=== PATIENT | female | born 1970 | race Caucasian/White ===

== ENCOUNTER 2017-01-20 11:59 | Emergency (ER) | payer BC ==
[~2017-01-20] VITALS: Ht 162.6 cm; Wt 68.2 kg
[~2017-01-20 11:59] MED LIST: CYMB30CA PO; OMEP20TA39 PO
[2017-01-20 12:00] VITALS: BP 165/92; PULSE 70; RESP 20; TEMP 97.7; O2SAT 95
[2017-01-20] MEDS ORDERED: CYMB60CA PO (12:23)
[2017-01-20] MEDS ORDERED: AMBI10TA PO (12:23)
[2017-01-20] MEDS ORDERED: SODIUM CHLOR 0.9% 1000 ML INJ 1,000 ML IV SCH (13:14)
[2017-01-20] MEDS ORDERED: ONDANSETRON HCL 4 MG/2 ML VIAL IVP ONE (13:15)
[2017-01-20] MEDS ORDERED: SODIUM CHLORIDE 0.9% FLUSH 5 ML FLUSH IVF PRN (13:15)
[2017-01-20 13:20] VITALS: RESP 17; O2SAT 98
[2017-01-20 13:32] LABS: AUTOMATED NEUTROPHIL # 6.7 TH/MM3 (1.8-7.7); BASOPHIL # 0.1 TH/MM3 (0-0.2); BASOPHIL % 1.4 % (0.0-2.0); EOSINOPHIL # 0.1 TH/MM3 (0-0.4); EOSINOPHIL % 1.1 % (0.0-4.0); HEMATOCRIT 46.9 % (35.0-46.0); LYMPH % 14.9 % (9.0-44.0); LYMPHOCYTE # 1.3 TH/MM3 (1.0-4.8); MEAN CELL VOLUME 89.7 FL (80.0-100.0); MEAN CORPUSCULAR HEMOGLOBIN 30.9 PG (27.0-34.0); MEAN CORPUSCULAR HGB CONC 34.4 % (32.0-36.0); MONO % 5.3 % (0.0-8.0); NEUT % 77.3 % (16.0-70.0); PLATELET COUNT 316 TH/MM3 (150-450); RED BLOOD COUNT 5.23 MIL/MM3 (4.00-5.30); WHITE BLOOD COUNT 8.6 TH/MM3 (4.0-11.0)
[2017-01-20 13:34] LABS: HEMO FLAGS AUTO DIFF
[2017-01-20 13:46] LABS: BLOOD, URINE SMALL (NEG); COMMENT (UR) CULT NOT INDICATED; CULTURE IF INDICATED CULT NOT INDICATED; GLUCOSE,URINE NEG (NEG); KETONE, URINE TRACE mg/dL (NEG); MUCUS URINE MANY /lpf (OCC); NITRITE,URINE NEG (NEG); PH, URINE 5.5 (5.0-8.5); SQUAMOUS EPITHELIAL CELL URINE 3 /hpf (0-5); URINE COLOR YELLOW (YELLW/STRAW)
[2017-01-20 13:54] LABS: ALT (GPT) 70 U/L (10-53); ANION GAP 7 MEQ/L (5-15); AST (GOT) 41 U/L (15-37); BLOOD UREA NITROGEN 15 MG/DL (7-18); CHLORIDE 102 MEQ/L (98-107); GLOMERULAR FILTRATION RATE 59 ML/MIN (>89); POTASSIUM 3.8 MEQ/L (3.5-5.1); SODIUM (NA) 136 MEQ/L (136-145)
[2017-01-20 13:57] LABS: ALKALINE PHOSPHATASE 86 U/L (45-117); TOTAL BILIRUBIN ADULT 1.5 MG/DL (0.2-1.0)
[2017-01-20 14:00] VITALS: BP 150/81; PULSE 76; RESP 17; TEMP 97.8; O2SAT 98
[2017-01-20 14:09] LABS: PLATELET ESTIMATE SMEAR NORMAL (NORMAL); PLATELET MORPHOLOGY NORMAL (NORMAL); SCAN/DIFF AUTO DIFF CONFIRMED
--- NOTE | 2017-01-20 15:30 | PD ---
HPI Chief Complaint: GI Complaint Time Seen by Provider: 12:48 Travel History International Travel<30 days: No Contact w/Intl Traveler<30days: No Traveled to known affect area: No History of Present Illness HPI Patient is a 46-year-old female comes in complaining of nausea, vomiting, diarrhea. She says this started Friday and she had multiple episodes of vomiting and diarrhea since then. Her last episode of vomiting and diarrhea were yesterday. Her was recently admitted to the hospital with C. difficile. She denies any abdominal pain. She denies seeing any blood in her vomit or her stool. She has not been on antibiotics recently. She denies any pain in her abdomen. She denies any dysuria. She denies fever or chills. PFSH Past Medical History Hx Anticoagulant Therapy: No Arthritis: Yes Anxiety: Yes Depression: Yes Cardiovascular Problems: No Cerebrovascular Accident: No Diabetes: No Diminished Hearing: No Psychiatric: Yes Respiratory: No Immunizations Current: No Tetanus Vaccination: < 5 Years Influenza Vaccination: No ?: Not Past Surgical History Appendectomy: Yes Gynecologic Surgery: Yes (OVARIAN CYST REMOVED.) Hysterectomy: Yes Other Surgery: Yes (LAPAROSCOPIES,CYSTS-OVARIES.) Social History Alcohol Use: Yes (3 times a week) Tobacco Use: Yes (1 PPD) Substance Use: No Allergies-Medications (Allergen,Severity, Reaction): Coded Allergies: Percocet (Verified Allergy, Mild, HIVES, 01/20/17) Wellbutrin (Verified Allergy, Mild, HIVES, 01/20/17) Darvocet-N 100 (Verified Allergy, Unknown, hives, 01/20/17) Reported Meds & Prescriptions Reported Meds & Active Scripts Active Reported Cymbalta DR (Duloxetine HCl) 60 Mg Capdr 60 Mg PO BID Ambien (Zolpidem Tartrate) 10 Mg Tab 10 Mg PO HS PRN Review of Systems Except as stated in HPI: all other systems reviewed are Neg General / Constitutional: No: Fever, Chills HENT: No: Headaches, Lightheadedness Cardiovascular: No: Chest Pain or Discomfort Respiratory: No: Shortness of Breath Gastrointestinal: Positive: Nausea, Vomiting, Diarrhea, No: Abdominal Pain Genitourinary: No: Dysuria Musculoskeletal: No: Edema, Pain Skin: No Rash, No Change in Pigmentation Neurologic: No: Weakness, Dizziness Physical Exam Narrative GENERAL: Awake and alert, in no acute distress. SKIN: Warm and dry. HEAD: Atraumatic. Normocephalic. EYES: Pupils equal and round. No scleral icterus. ENT: Mucous membranes pink and moist. NECK: Trachea midline. No JVD. CARDIOVASCULAR: Regular rate and rhythm. No murmur appreciated. RESPIRATORY: No accessory muscle use. Clear to auscultation. Breath sounds equal bilaterally. GASTROINTESTINAL: Abdomen soft, non-tender, nondistended. MUSCULOSKELETAL: No obvious deformities. No clubbing. No cyanosis. No edema. NEUROLOGICAL: Awake and alert. No obvious cranial nerve deficits. Motor grossly within normal limits. Normal speech. PSYCHIATRIC: Appropriate mood and affect; insight and judgment normal. Data Data Last Documented VS Vital Signs Date Time Temp Pulse Resp B/P Pulse Ox O2 Delivery O2 Flow Rate FiO2 01/20/17 15:48 97.8 78 17 130/78 99 01/20/17 14:00 Room Air Orders Complete Blood Count With Diff (01/20/17 13:14) Comprehensive Metabolic Panel (01/20/17 13:14) Urinalysis - C+S If Indicated (01/20/17 13:14) Ua Includes Microscopic (01/20/17 13:14) Iv Access Insert/Monitor (01/20/17 13:14) Ecg Monitoring (01/20/17 13:14) Oximetry (01/20/17 13:14) Ondansetron Inj (Zofran Inj) (01/20/17 13:15) Sodium Chlor 0.9% 1000 Ml Inj (Ns 1000 M (01/20/17 13:14) Sodium Chloride 0.9% Flush (Ns Flush) (01/20/17 13:15) C Diff Toxin Pcr (01/20/17 14:12) Labs Laboratory Tests Test 01/20/17 01/20/17 13:00 13:10 White Blood Count 8.6 TH/MM3 Red Blood Count 5.23 MIL/MM3 Hemoglobin 16.2 GM/DL Hematocrit 46.9 % Mean Corpuscular Volume 89.7 FL Mean Corpuscular Hemoglobin 30.9 PG Mean Corpuscular Hemoglobin 34.4 % Concent Red Cell Distribution Width 14.0 % Platelet Count 316 TH/MM3 Mean Platelet Volume 8.8 FL Neutrophils (%) (Auto) 77.3 % Lymphocytes (%) (Auto) 14.9 % Monocytes (%) (Auto) 5.3 % Eosinophils (%) (Auto) 1.1 % Basophils (%) (Auto) 1.4 % Neutrophils # (Auto) 6.7 TH/MM3 Lymphocytes # (Auto) 1.3 TH/MM3 Monocytes # (Auto) 0.5 TH/MM3 Eosinophils # (Auto) 0.1 TH/MM3 Basophils # (Auto) 0.1 TH/MM3 CBC Comment AUTO DIFF Differential Comment AUTO DIFF CONFIRMED Platelet Estimate NORMAL Platelet Morphology Comment NORMAL Red Cell Morphology Comment NORMAL Sodium Level 136 MEQ/L Potassium Level 3.8 MEQ/L Chloride Level 102 MEQ/L Carbon Dioxide Level 27.0 MEQ/L Anion Gap 7 MEQ/L Blood Urea Nitrogen 15 MG/DL Creatinine 1.00 MG/DL Estimat Glomerular Filtration 59 ML/MIN Rate Random Glucose 99 MG/DL Calcium Level 9.7 MG/DL Total Bilirubin 1.5 MG/DL Aspartate Amino Transf 41 U/L (AST/SGOT) Alanine Aminotransferase 70 U/L (ALT/SGPT) Alkaline Phosphatase 86 U/L Total Protein 8.9 GM/DL Albumin 4.4 GM/DL Urine Color YELLOW Urine Turbidity HAZY Urine pH 5.5 Urine Specific [place] 1.030 Urine Protein 100 mg/dL Urine Glucose (UA) NEG mg/dL Urine Ketones TRACE mg/dL Urine Occult Blood SMALL Urine Nitrite NEG Urine Bilirubin NEG Urine Urobilinogen 2.0 MG/DL Urine Leukocyte Esterase NEG Urine RBC 2 /hpf Urine WBC 1 /hpf Urine Squamous Epithelial 3 /hpf Cells Urine Mucus MANY /lpf Microscopic Urinalysis Comment CULT NOT INDICATED MDM Medical Decision Making Medical Screen Exam Complete: Yes Emergency Medical Condition: Yes Differential Diagnosis Gastroenteritis versus colitis versus electrolyte abnormality versus C. difficile Narrative Course Patient is a 46-year-old female comes in complaining of nausea, vomiting, diarrhea. Exam shows no acute abnormalities, there is no tenderness to her abdomen on palpation. IV established, labs sent. Labs show a slight elevation in total bilirubin to 1.5. Patient has 0 abdominal pain, no tenderness to the right upper quadrant at all. Patient given IV fluids, Zofran. She reports feeling much better after medications. She is able to drink Gatorade without vomiting. He should still has not had another bowel movement. I explained it is unlikely that she has C. difficile as she has not had a bowel movement since yesterday. I advised her to follow-up with her primary doctor to have her stool tested as an outpatient since she has not been able to go. Advised to drink plenty of fluids. Advised to eat a bland diet if she is feeling hungry. Advised to return to the ED as needed for any worsening symptoms. Diagnosis Primary Impression: Nausea, vomiting and diarrhea Patient Instructions: Acute Nausea and Vomiting (ED), General Instructions Additional Instructions: Follow up with your doctor. Drink plenty of fluids. If you are feeling hungry , eat bland foods for at least the next day. Return to the ED as needed for any worsening symptoms. Disposition: 01 DISCHARGE HOME Condition: Stable Karime Patel MD Jan 20, 2017 15:30
[2017-01-20 15:48] VITALS: BP 130/78; TEMP 97.8
== END 2017-01-20 15:50 | disposition home or self-care (01) ==
LOC: NEPA 11:59
DX: R11.2 Nausea with vomiting, unspecified (principal); R19.7 Diarrhea, unspecified; F17.210 Nicotine dependence, cigarettes, uncomplicated
CPT/HCPCS: 80053; 81001; 85025; 96361; 96374; 99284; J2405; J7030

== ENCOUNTER 2017-11-27 16:21 | Inpatient (IN) | payer BC ==
[~2017-11-27] VITALS: Ht 160 cm; Wt 63.1 kg
[~2017-11-27 16:21] MED LIST changes: +AMBI10TA PO; -CYMB30CA PO; +CYMB60CA PO; -OMEP20TA39 PO
[2017-11-27 16:28] VITALS: BP 112/71; PULSE 91; RESP 14; TEMP 97.9; O2SAT 97
[2017-11-27 17:02] LABS: AUTOMATED NEUTROPHIL # 11.9 TH/MM3 (1.8-7.7); BASOPHIL # 0.1 TH/MM3 (0-0.2); BASOPHIL % 0.7 % (0.0-2.0); EOSINOPHIL # 0.1 TH/MM3 (0-0.4); EOSINOPHIL % 0.4 % (0.0-4.0); HEMATOCRIT 44.6 % (35.0-46.0); HEMOGLOBIN 15.9 GM/DL (11.6-15.3); LYMPH % 16.6 % (9.0-44.0); LYMPHOCYTE # 2.6 TH/MM3 (1.0-4.8); MEAN CELL VOLUME 91.2 FL (80.0-100.0); MEAN CORPUSCULAR HEMOGLOBIN 32.4 PG (27.0-34.0); MEAN CORPUSCULAR HGB CONC 35.6 % (32.0-36.0); MEAN PLATELET VOLUME 8.4 FL (7.0-11.0); MONO % 6.9 % (0.0-8.0); MONOCYTE # 1.1 TH/MM3 (0-0.9); NEUT % 75.4 % (16.0-70.0); PLATELET COUNT 317 TH/MM3 (150-450); RED BLOOD COUNT 4.89 MIL/MM3 (4.00-5.30); RED CELL DISTRIBUTION WIDTH 14.3 % (11.6-17.2); WHITE BLOOD COUNT 15.8 TH/MM3 (4.0-11.0)
[2017-11-27 17:13] LABS: BACTERIA, URINE RARE /hpf; BILIRUBIN, URINE NEG (NEG); BLOOD, URINE LARGE (NEG); GLUCOSE,URINE NEG (NEG); KETONE, URINE NEG (NEG); MUCUS URINE FEW /lpf (OCC); NITRITE,URINE NEG (NEG); PH, URINE 5.5 (5.0-8.5); SQUAMOUS EPITHELIAL CELL URINE <1 /hpf (0-5); URINE COLOR YELLOW (YELLW/STRAW); URINE LEUKOCYTE ESTERASE TRACE (NEG)
[2017-11-27 17:39] LABS: ALBUMIN 4.4 GM/DL (3.4-5.0); ALT (GPT) 44 U/L (10-53); AST (GOT) 28 U/L (15-37); BICARBONATE 27.1 MEQ/L (21.0-32.0); BLOOD UREA NITROGEN 11 MG/DL (7-18); CALCIUM 9.7 MG/DL (8.5-10.1); CHLORIDE 102 MEQ/L (98-107); CREATININE 0.87 MG/DL (0.50-1.00); GLOMERULAR FILTRATION RATE 69 ML/MIN (>89); GLUCOSE,RANDOM 96 MG/DL (74-106); LIPASE 126 U/L (73-393); SODIUM (NA) 138 MEQ/L (136-145)
[2017-11-27 17:42] LABS: ALKALINE PHOSPHATASE 100 U/L (45-117); TOTAL BILIRUBIN ADULT 1.1 MG/DL (0.2-1.0); TOTAL PROTEIN 8.9 GM/DL (6.4-8.2)
[2017-11-27] MEDS ORDERED: HYDR1SOL6 (17:48)
[2017-11-27] MEDS ORDERED: GABA300C5 PO (17:48)
--- NOTE | 2017-11-27 17:54 | PD ---
HPI Chief Complaint: Abdominal Pain Time Seen by Provider: 17:51 Travel History International Travel<30 days: No Contact w/Intl Traveler<30days: No Traveled to known affect area: No History of Present Illness HPI 47-year-old female presents to emergency Department with complaint of worsening of bladder pressure today. She has had bladder pressure on and off for the past week. Had hematuria last week for 1 day. Denies dysuria. Denies vaginal discharge, bleeding, odor. Reports vomiting this morning. Reports diarrhea. Has had some sips of orange soda and without continued vomiting. Denies nausea at this time. Denies history of kidney stones. Denies fevers. Took a Lortab earlier with no relief of symptoms. Rates pain 10/10. Describes it as a pressure. History of hysterectomy. History of arthritis. Allergies to acetaminophen, bupropion, oxycodone, propoxyphene. Dr. Watson is primary care provider. Has no other medical complaints. No other modifying factors or associated signs and symptoms. PFSH Past Medical History Hx Anticoagulant Therapy: No Arthritis: Yes Anxiety: Yes Depression: Yes Cardiovascular Problems: No Cerebrovascular Accident: No Diabetes: No Diminished Hearing: No Psychiatric: Yes Respiratory: No Immunizations Current: No Tetanus Vaccination: < 5 Years ?: Not Past Surgical History Appendectomy: Yes Gynecologic Surgery: Yes (OVARIAN CYST REMOVED.) Hysterectomy: Yes Other Surgery: Yes (LAPAROSCOPIES,CYSTS-OVARIES.) Social History Alcohol Use: Yes (3 times a week) Tobacco Use: Yes (1 PPD) Substance Use: No Allergies-Medications (Allergen,Severity, Reaction): Coded Allergies: acetaminophen (Verified Allergy, Mild, HIVES, 11/27/17) pt states she can take tylenol without any issues; pt states she has an allergy to Percocet (oxycodone) bupropion (Verified Allergy, Mild, HIVES, 11/27/17) oxycodone (Verified Allergy, Mild, HIVES, 11/27/17) pt states she is allergic to percocet; pt is able to take tylenol without any issues. propoxyphene (Verified Allergy, Unknown, hives, 11/27/17) Reported Meds & Prescriptions Reported Meds & Active Scripts Active Reported Hydrocodon-Acetamin 7.5-325/15 (Hydrocodone/Acetaminophen) 7.5 Mg-325 Mg/15 Ml ( 15 Ml) Solution Gabapentin 300 Mg Cap 300 Mg PO BID Ambien (Zolpidem Tartrate) 10 Mg Tab 10 Mg PO HS PRN Review of Systems Except as stated in HPI: all other systems reviewed are Neg Physical Exam Narrative GENERAL: Well-nourished, well-developed female patient, in no acute distress; afebrile SKIN: Warm and dry. HEAD: Atraumatic. Normocephalic. EYES: Pupils equal and round. No scleral icterus. No injection or drainage. ENT: Mucosa pink and moist. Airway patent. NECK: Trachea midline. CARDIOVASCULAR: Regular rate and rhythm. No murmur appreciated. RESPIRATORY: No accessory muscle use. Clear to auscultation. Breath sounds equal bilaterally. GASTROINTESTINAL: Abdomen soft, tenderness on palpation to right lower quadrant , nondistended; tenderness on palpation of the bladder; nondistended bladder Hepatic and splenic margins not palpable. Bowel sounds are active 4 quadrants. Nonrigid. No guarding. BACK: Right-sided CVA tenderness. MUSCULOSKELETAL: No obvious deformities. No clubbing. No cyanosis. No edema. NEUROLOGICAL: Awake and alert. Oriented 3. No obvious cranial nerve deficits. Motor grossly within normal limits. Normal speech. PSYCHIATRIC: Appropriate mood and affect; insight and judgment normal. Data Data Last Documented VS Vital Signs Date Time Temp Pulse Resp B/P (MAP) Pulse Ox O2 Delivery O2 Flow Rate FiO2 11/27/17 19:45 98.2 11/27/17 16:28 91 14 97 Orders Orders Complete Blood Count With Diff (11/27/17 16:37) Comprehensive Metabolic Panel (11/27/17 16:37) Lipase (11/27/17 16:37) Urinalysis - C+S If Indicated (11/27/17 16:37) Iv Access Insert/Monitor (11/27/17 18:02) Sodium Chlor 0.9% 1000 Ml Inj (Ns 1000 M (11/27/17 18:02) Sodium Chloride 0.9% Flush (Ns Flush) (11/27/17 18:15) Ketorolac Inj (Toradol Inj) (11/27/17 18:15) Ct Abd/Pel W/O Iv Contrast (11/27/17 18:02) Ceftriaxone Inj (Rocephin Inj) (11/27/17 19:45) Metronidazole 500 Mg Inj (Flagyl 500 Mg (11/27/17 19:45) Fentanyl Inj (Fentanyl Inj) (11/27/17 19:45) Ondansetron Inj (Zofran Inj) (11/27/17 19:45) Admit Order (Ed Use Only) (11/27/17 ) Vital Signs (Adult) Q4H (11/27/17 19:50) Activity Oob With Assistance (11/27/17 19:50) Notify Dr: Other (11/27/17 19:50) Lactic Acid (11/27/17 19:50) Labs Laboratory Tests Test 11/27/17 16:47 11/27/17 16:51 Urine Color YELLOW Urine Turbidity CLEAR Urine pH 5.5 Urine Specific [place] 1.022 Urine Protein TRACE mg/dL Urine Glucose (UA) NEG mg/dL Urine Ketones NEG mg/dL Urine Occult Blood LARGE Urine Nitrite NEG Urine Bilirubin NEG Urine Urobilinogen LESS THAN 2.0 MG/DL Urine Leukocyte Esterase TRACE Urine RBC /hpf Urine WBC 6 /hpf Urine Squamous Epithelial Cells <1 /hpf Urine Bacteria RARE /hpf Urine Mucus FEW /lpf Microscopic Urinalysis Comment CULT NOT INDICATED White Blood Count 15.8 TH/MM3 Red Blood Count 4.89 MIL/MM3 Hemoglobin 15.9 GM/DL Hematocrit 44.6 % Mean Corpuscular Volume 91.2 FL Mean Corpuscular Hemoglobin 32.4 PG Mean Corpuscular Hemoglobin Concent 35.6 % Red Cell Distribution Width 14.3 % Platelet Count 317 TH/MM3 Mean Platelet Volume 8.4 FL Neutrophils (%) (Auto) 75.4 % Lymphocytes (%) (Auto) 16.6 % Monocytes (%) (Auto) 6.9 % Eosinophils (%) (Auto) 0.4 % Basophils (%) (Auto) 0.7 % Neutrophils # (Auto) 11.9 TH/MM3 Lymphocytes # (Auto) 2.6 TH/MM3 Monocytes # (Auto) 1.1 TH/MM3 Eosinophils # (Auto) 0.1 TH/MM3 Basophils # (Auto) 0.1 TH/MM3 CBC Comment DIFF FINAL Differential Comment Blood Urea Nitrogen 11 MG/DL Creatinine 0.87 MG/DL Random Glucose 96 MG/DL Total Protein 8.9 GM/DL Albumin 4.4 GM/DL Calcium Level 9.7 MG/DL Alkaline Phosphatase 100 U/L Aspartate Amino Transf (AST/SGOT) 28 U/L Alanine Aminotransferase (ALT/SGPT) 44 U/L Total Bilirubin 1.1 MG/DL Sodium Level 138 MEQ/L Potassium Level 3.9 MEQ/L Chloride Level 102 MEQ/L Carbon Dioxide Level 27.1 MEQ/L Anion Gap 9 MEQ/L Estimat Glomerular Filtration Rate 69 ML/MIN Lipase 126 U/L MDM Medical Decision Making Medical Screen Exam Complete: Yes Emergency Medical Condition: Yes Medical Record Reviewed: Yes Differential Diagnosis nephrolithiasis, UTI, pyelonephritis Narrative Course 47-year-old female physical exam consistent with right lower quadrant abdominal pain and pain over the bladder. No bladder distention. Urinalysis, CBC, BMP ordered in triage. 1754: WBC 15.8, otherwise CBC unremarkable. BMP unremarkable lipase unremarkable. Urinalysis with innumerable red blood cells and without signs of infection. 1900: Report given to Polo Olea PA-C at change of shift. See his note for final patient disposition. Carisa Soto Nov 27, 2017 17:54
[2017-11-27] MEDS ORDERED: SODIUM CHLOR 0.9% 1000 ML INJ 1,000 ML IV SCH (18:02)
[2017-11-27] MEDS ORDERED: KETOROLAC TROMETHAMINE 30 MG/ML (IVP) VIAL IVP ONE (18:15)
[2017-11-27] MEDS ORDERED: SODIUM CHLORIDE 0.9% FLUSH 10 ML FLUSH IV FLUSH PRN ×2 (18:15→20:00)
--- NOTE | 2017-11-27 19:25 | RADRPT ---
EXAM DATE/TIME: 11/27/2017 18:58 [facility] COMPARISON: No previous studies available for comparison. INDICATIONS : Bilateral lower abdominal pain with hematuria. ORAL CONTRAST: No oral contrast ingested. RADIATION DOSE: 8.50 CTDIvol (mGy) MEDICAL HISTORY : Ovarian cysts. SURGICAL HISTORY : Appendectomy. Hysterectomy. ENCOUNTER: Initial ACUITY: 1 week PAIN SCALE: 8/10 LOCATION: Bilateral lower quadrant TECHNIQUE: Volumetric scanning of the abdomen and pelvis was performed. Using automated exposure control and ad justment of the mA and/or kV according to patient size, radiation dose was kept as low as reasonably achievable to obtain optimal diagnostic quality images. DICOM format image data is available electro nically for review and comparison. FINDINGS: LOWER LUNGS: The visualized lower lungs are clear. LIVER: Visualized portions are unremarkable. Gallbladder slightly distended. SPLEEN: Visualized portions unremarkable. PANCREAS: Scattered tiny calcifications. No mass. No pancreatic ductal dilatation. KIDNEYS: Normal in size and shape. There is no mass, stone, or hydronephrosis. ADRENAL GLANDS: Within normal limits. VASCULAR: There is no aortic aneurysm. BOWEL/MESENTERY: Distal colonic diverticula. Inflammatory changes adjacent to the distal sigmoid colon and proximal re ctum, likely indicative of active diverticulitis. No evidence of extraluminal gas or fluid. No eviden ce of bowel obstruction. ABDOMINAL WALL: Within normal limits. RETROPERITONEUM: There is no lymphadenopathy. BLADDER: No wall thickening or mass. REPRODUCTIVE: Uterus surgically absent. No evidence of pelvic mass or free fluid. INGUINAL: There is no lymphadenopathy or hernia. MUSCULOSKELETAL: Within normal limits for patient age. CONCLUSION: Sigmoid diverticulitis. Vipin Turner MD on November 27, 2017 at 19:21 Board Certified Radiologist. This report was verified electronically.
[2017-11-27 19:45] VITALS: TEMP 98.2
[2017-11-27] MEDS ORDERED: metroNIDAZOLE 500 MG INJ 100 ML IV ONE (19:45)
[2017-11-27] MEDS ORDERED: ONDANSETRON HCL 4 MG/2 ML VIAL IV PUSH ONE (19:45)
[2017-11-27] MEDS ORDERED: cefTRIAXone INJ 1,000 MG in SODIUM CHLORIDE 0.9% INJ 100 ML IV ONE (19:45)
--- NOTE | 2017-11-27 19:56 | PD ---
Physical Exam Date Seen by Provider: Nov 27, 2017 Time Seen by Provider: 19:52 Narrative GENERAL: This is a well-nourished, well-developed patient, in no apparent distress. SKIN: No rashes, ecchymoses or lesions. Warm and dry. HEAD: Atraumatic. Normocephalic. EYES: PERRL, EOMI, no discharge or injection. No scleral icterus. EARS: Clear NOSE: Nasal turbinates appear normal. THROAT: Mucosa pink and somewhat dry. Airway patent. NECK: Trachea midline. supple, moves head freely. LUNGS: Clear to auscultation. CV: Regular in rhythm. ABDOMEN: Soft nontender, diffuse lower abdominal tenderness worse in the suprapubic and right lower quadrant with mild guarding. No rebound. EXT: No clubbing cyanosis or edema. Data Data Last Documented VS Vital Signs Date Time Temp Pulse Resp B/P (MAP) Pulse Ox O2 Delivery O2 Flow Rate FiO2 11/27/17 19:45 98.2 11/27/17 16:28 91 14 97 Orders Orders Complete Blood Count With Diff (11/27/17 16:37) Comprehensive Metabolic Panel (11/27/17 16:37) Lipase (11/27/17 16:37) Urinalysis - C+S If Indicated (11/27/17 16:37) Iv Access Insert/Monitor (11/27/17 18:02) Sodium Chlor 0.9% 1000 Ml Inj (Ns 1000 M (11/27/17 18:02) Sodium Chloride 0.9% Flush (Ns Flush) (11/27/17 18:15) Ketorolac Inj (Toradol Inj) (11/27/17 18:15) Ct Abd/Pel W/O Iv Contrast (11/27/17 18:02) Ceftriaxone Inj (Rocephin Inj) (11/27/17 19:45) Metronidazole 500 Mg Inj (Flagyl 500 Mg (11/27/17 19:45) Fentanyl Inj (Fentanyl Inj) (11/27/17 19:45) Ondansetron Inj (Zofran Inj) (11/27/17 19:45) Admit Order (Ed Use Only) (11/27/17 ) Vital Signs (Adult) Q4H (11/27/17 19:50) Diet Heart Healthy (11/28/17 Breakfast) Activity Oob With Assistance (11/27/17 19:50) Notify Dr: Other (11/27/17 19:50) Lactic Acid (11/27/17 19:50) Labs Laboratory Tests Test 11/27/17 16:47 11/27/17 16:51 Urine Color YELLOW Urine Turbidity CLEAR Urine pH 5.5 Urine Specific [place] 1.022 Urine Protein TRACE mg/dL Urine Glucose (UA) NEG mg/dL Urine Ketones NEG mg/dL Urine Occult Blood LARGE Urine Nitrite NEG Urine Bilirubin NEG Urine Urobilinogen LESS THAN 2.0 MG/DL Urine Leukocyte Esterase TRACE Urine RBC /hpf Urine WBC 6 /hpf Urine Squamous Epithelial Cells <1 /hpf Urine Bacteria RARE /hpf Urine Mucus FEW /lpf Microscopic Urinalysis Comment CULT NOT INDICATED White Blood Count 15.8 TH/MM3 Red Blood Count 4.89 MIL/MM3 Hemoglobin 15.9 GM/DL Hematocrit 44.6 % Mean Corpuscular Volume 91.2 FL Mean Corpuscular Hemoglobin 32.4 PG Mean Corpuscular Hemoglobin Concent 35.6 % Red Cell Distribution Width 14.3 % Platelet Count 317 TH/MM3 Mean Platelet Volume 8.4 FL Neutrophils (%) (Auto) 75.4 % Lymphocytes (%) (Auto) 16.6 % Monocytes (%) (Auto) 6.9 % Eosinophils (%) (Auto) 0.4 % Basophils (%) (Auto) 0.7 % Neutrophils # (Auto) 11.9 TH/MM3 Lymphocytes # (Auto) 2.6 TH/MM3 Monocytes # (Auto) 1.1 TH/MM3 Eosinophils # (Auto) 0.1 TH/MM3 Basophils # (Auto) 0.1 TH/MM3 CBC Comment DIFF FINAL Differential Comment Blood Urea Nitrogen 11 MG/DL Creatinine 0.87 MG/DL Random Glucose 96 MG/DL Total Protein 8.9 GM/DL Albumin 4.4 GM/DL Calcium Level 9.7 MG/DL Alkaline Phosphatase 100 U/L Aspartate Amino Transf (AST/SGOT) 28 U/L Alanine Aminotransferase (ALT/SGPT) 44 U/L Total Bilirubin 1.1 MG/DL Sodium Level 138 MEQ/L Potassium Level 3.9 MEQ/L Chloride Level 102 MEQ/L Carbon Dioxide Level 27.1 MEQ/L Anion Gap 9 MEQ/L Estimat Glomerular Filtration Rate 69 ML/MIN Lipase 126 U/L [facility] Medical Record Reviewed: Yes Supervised Visit with HEATHER: Yes Interpretation(s) CBC & BMP Diagram 11/27/17 16:51 Total Protein 8.9 H, Albumin 4.4, Calcium Level 9.7, Alkaline Phosphatase 100, Aspartate Amino Transf (AST/SGOT) 28, Alanine Aminotransferase (ALT/SGPT) 44, Total Bilirubin 1.1 H Last 24 hours Impressions Abdomen/Pelvis CT 11/27/17 1802 Signed Impressions: Service Date/Time: October 18:58 - CONCLUSION: Sigmoid diverticulitis. Vipin Turner MD Differential Diagnosis MDM: High Differential diagnoses: Nephrolithiasis, diverticulitis, hepatitis, colitis, ischemic bowel, bowel instruction Narrative Course IV access is obtained. Patient's liver and liter bolus normal saline. Patient' s also given 1 g Rocephin IV and Flagyl 500 mg IV. Fentanyl 25 g IV. I reviewed the patient's medical record from the daytime provider. Patient has lower abdominal pain with subjective fever and chills at home, nausea vomiting, and worsening abdominal pain. I believe this patient necessitates IV antibiotics and admission. I discussed the case with Dr. Winn who is agreed to admit this patient. She feels that this patient meets full admission criteria. We will also obtain a lactic acid level to monitor for sepsis. Sepsis Criteria SIRS Criteria (2 or more): Heart rate over 90, WBC > 89935, < 4000 or > 10% bands Sepsis Criteria (SIRS+source): Infect source susp/known Criteria Outcome: Meets SIRS criteria Diagnosis Primary Impression: acute sigmoid diverticulitis Admitting Information Admitting Physician Requests: Admit Polo Olea Nov 27, 2017 19:56
--- NOTE | 2017-11-27 19:59 | HHI.HP ---
HPI Service [facility] Primary Care Physician Unknown Admission Diagnosis acute sigmoid diverticulitis Diagnoses: (1) Diverticulitis Diagnosis: Principal (2) Hematuria Diagnosis: Principal (3) Dehydration Diagnosis: Principal (4) Alcohol abuse Diagnosis: Principal (5) Tobacco abuse Diagnosis: Principal Travel History International Travel<30 Days: No Contact w/Intl Traveler <30 Da: No Traveled to Known Affected Are: No History of Present Illness This is a 47-year-old female with a PMH of Anxiety and Depression who presented to the ER w/ complaints of abdominal pain, hematuria and dysuria for approx 1wk. Symptoms intermittent. Pain constant, severe 10/10. No alleviating/ exacerbating factors. Denies associated fever, chills, nausea, vomiting or diarrhea. Took pain pill at home w/ no relief. No h/o similar symptoms. On arrival, BP 112/71, HR 91, O2 sat 97% on RA, Afebrile. WBC 15.8. GFR 69. Lactic Acid normal. UA positive for hematuria. CT Abd/Pelvis positive for sigmoid diverticulitis. S/p Rocephin/Flagyl in ER. Review of Systems Except as stated in HPI: all other systems reviewed are Neg ROS: 14 point review of systems otherwise negative. Past Family Social History Past Medical History PMH: Anxiety and Depression Past Surgical History PAST SURGICAL HISTORY: Ovarian Cystectomy, Hysterectomy, Appendectomy Allergies: Coded Allergies: acetaminophen (Verified Allergy, Mild, HIVES, 11/27/17) pt states she can take tylenol without any issues; pt states she has an allergy to Percocet (oxycodone) bupropion (Verified Allergy, Mild, HIVES, 11/27/17) oxycodone (Verified Allergy, Mild, HIVES, 11/27/17) pt states she is allergic to percocet; pt is able to take tylenol without any issues. propoxyphene (Verified Allergy, Unknown, hives, 11/27/17) Family History PAST FAMILY HISTORY: Reviewed. No h/o DM or CAD Social History PAST SOCIAL HISTORY: Positive for alcohol. Smokes 1ppd. Negative for drugs. Physical Exam Vital Signs Vital Signs Date Time Temp Pulse Resp B/P (MAP) Pulse Ox O2 Delivery O2 Flow Rate FiO2 11/27/17 19:45 98.2 11/27/17 16:28 97.9 91 14 112/71 (85) 97 Physical Exam PE: GENERAL: Middle-aged female in no acute distress. HEENT: PERRLA, EOMI. No scleral icterus or conjunctival pallor. No lid lag or facial droop. CARDIOVASCULAR: Regular rate and rhythm. No obvious murmurs to auscultation. No chest tenderness to palpation. RESPIRATORY: No obvious rhonchi or wheezing. Clear to auscultation. Breath sounds equal bilaterally. GASTROINTESTINAL: Abdomen soft, mild generalized tenderness to palpation, nondistended. BS normal. MUSCULOSKELETAL: Extremities without clubbing, cyanosis, or edema. No obvious deformities. NEUROLOGICAL: Awake, alert and oriented x4. No focal neurologic deficits. Moving both upper and lower extremities spontaneously. Laboratory Laboratory Tests Test 11/27/17 16:47 11/27/17 16:51 Urine Color YELLOW Urine Turbidity CLEAR Urine pH 5.5 Urine Specific [place] 1.022 Urine Protein TRACE Urine Glucose (UA) NEG Urine Ketones NEG Urine Occult Blood LARGE Urine Nitrite NEG Urine Bilirubin NEG Urine Urobilinogen LESS THAN 2.0 Urine Leukocyte Esterase TRACE Urine RBC Urine WBC 6 Urine Squamous Epithelial Cells <1 Urine Bacteria RARE Urine Mucus FEW Microscopic Urinalysis Comment CULT NOT INDICATED White Blood Count 15.8 Red Blood Count 4.89 Hemoglobin 15.9 Hematocrit 44.6 Mean Corpuscular Volume 91.2 Mean Corpuscular Hemoglobin 32.4 Mean Corpuscular Hemoglobin Concent 35.6 Red Cell Distribution Width 14.3 Platelet Count 317 Mean Platelet Volume 8.4 Neutrophils (%) (Auto) 75.4 Lymphocytes (%) (Auto) 16.6 Monocytes (%) (Auto) 6.9 Eosinophils (%) (Auto) 0.4 Basophils (%) (Auto) 0.7 Neutrophils # (Auto) 11.9 Lymphocytes # (Auto) 2.6 Monocytes # (Auto) 1.1 Eosinophils # (Auto) 0.1 Basophils # (Auto) 0.1 CBC Comment DIFF FINAL Differential Comment Blood Urea Nitrogen 11 Creatinine 0.87 Random Glucose 96 Total Protein 8.9 Albumin 4.4 Calcium Level 9.7 Alkaline Phosphatase 100 Aspartate Amino Transf (AST/SGOT) 28 Alanine Aminotransferase (ALT/SGPT) 44 Total Bilirubin 1.1 Sodium Level 138 Potassium Level 3.9 Chloride Level 102 Carbon Dioxide Level 27.1 Anion Gap 9 Estimat Glomerular Filtration Rate 69 Lipase 126 Result Diagram: 11/27/17165011/27/171650 [place] VTE Risk Assessment Caprini VTE Risk Assessment: No/Low Risk (score <= 1) Caprini Risk Assessment Model Point Value = 1 Point Value = 2 Point Value = 3 Point Value = 5 Age 41-60 Minor surgery BMI > 25 kg/m2 Swollen legs Varicose veins or History of unexplained or recurrent spontaneous Oral contraceptives or hormone replacement Sepsis (< 1 month) Serious lung disease, including pneumonia (< 1 month) Abnormal pulmonary function Acute myocardial infarction Congestive heart failure (< 1 month) History of inflammatory bowel disease Medical patient at bed rest Age 61-74 Arthroscopic surgery Major open surgery (> 45 min) Laparoscopic surgery (> 45 min) Malignancy Confined to bed (> 72 hours) Immobilizing plaster cast Central venous access Age >= 75 History of VTE Family history of VTE Factor V Leiden Prothrombin [id number] Lupus anticoagulant Anticardiolipin antibodies Elevated serum homocysteine Heparin-induced thrombocytopenia Other congenital or acquired thrombophilia Stroke (< 1 month) Elective arthroplasty Hip, pelvis, or leg fracture Acute spinal cord injury (< 1 month) Prophylaxis Regimen Total Risk Factor Score Risk Level Prophylaxis Regimen 0-1 Low Early ambulation 2 Moderate Order ONE of the following: *Sequential Compression Device (SCD) *Heparin 5000 units SQ BID 3-4 Higher Order ONE of the following medications: *Heparin 5000 units SQ TID *Enoxaparin/Lovenox 40 mg SQ daily (WT < 150 kg, CrCl > 30 mL/min) *Enoxaparin/Lovenox 30 mg SQ daily (WT < 150 kg, CrCl > 10-29 mL/min) *Enoxaparin/Lovenox 30 mg SQ BID (WT < 150 kg, CrCl > 30 mL/min) AND/OR *Sequential Compression Device (SCD) 5 or more Highest Order ONE of the following medications: *Heparin 5000 units SQ TID (Preferred with Epidurals) *Enoxaparin/Lovenox 40 mg SQ daily (WT < 150 kg, CrCl > 30 mL/min) *Enoxaparin/Lovenox 30 mg SQ daily (WT < 150 kg, CrCl > 10-29 mL/min) *Enoxaparin/Lovenox 30 mg SQ BID (WT < 150 kg, CrCl > 30 mL/min) AND *Sequential Compression Device (SCD) Assessment and Plan Problem List: (1) Diverticulitis ICD Code: K57.92 - Diverticulitis of intestine, part unspecified, without perforation or abscess without bleeding (2) Hematuria ICD Code: R31.9 - Hematuria, unspecified (3) Dehydration ICD Code: E86.0 - Dehydration (4) Alcohol abuse ICD Code: F10.10 - Alcohol abuse, uncomplicated (5) Tobacco abuse ICD Code: Z72.0 - Tobacco use Assessment and Plan A/P: 1. Diverticulitis: abdominal pain x1 wk, CT Abd/Pelvis w/ sigmoid diverticulitis, images reviewed by me. +WBC 15. S/p Rocephin/Flagyl in ER, will continue w/ Zosyn IV. Analgesics/antiemetics as needed. IVF for hydration. 2. Hematuria: U/a positive for hematuria, no evidence of UTI. Recommended follow up U/a as outpatient to eval for resolution of hematuria. Hgb stable, monitor Hgb/Hct. 3. Dehydration: GFR 69, BUN/Creatinine normal, decreased PO intake in light of symptoms. IVF for hydration, repeat labs in am. 4. Alcohol Abuse: CIWA, Seizure Precautions, MVT/Thiamine/Folate replacement. 5. Tobacco Abuse: Pt counselled. NicoDerm prn if needed. 6. DVT Prophylaxis: SCD/Teds. 7. Social work for d/c planning as needed. 8. Previous labs/records reviewed, case discussed at length w/ ER physician. Physician Certification 2 Midnight Certification Type: Admission for Inpatient Services Order for Inpatient Services The services are ordered in accordance with Medicare regulations or non- Medicare payer requirements, as applicable. In the case of services not specified as inpatient-only, they are appropriately provided as inpatient services in accordance with the 2-midnight benchmark. Estimated LOS (days): 2 days is the estimated time the patient will need to remain in the hospital, assuming treatment plan goals are met and no additional complications. Post-Hospital Plan: Not yet determined Lovely Winn MD Nov 27, 2017 19:59
[2017-11-27] MEDS ORDERED: MAGNESIUM HYDROXIDE SUSP 30 ML CUP PO PRN (20:00)
[2017-11-27] MEDS ORDERED: LACTULOSE SYRUP 20 GM/30 ML CUP PO PRN (20:00)
[2017-11-27] MEDS ORDERED: BISACODYL 10 MG SUPP RECTAL PRN (20:00)
[2017-11-27] MEDS ORDERED: SENNOSIDES 8.6 MG TAB PO PRN (20:00)
[2017-11-27] MEDS ORDERED: MORPHINE SULFATE 2 MG/ML INJ IV PUSH PRN (20:00)
[2017-11-27 20:05] VITALS: BP 124/66; PULSE 69; RESP 18; O2SAT 96
[2017-11-27 20:35] VITALS: BP 130/70
[2017-11-27 20:45] VITALS: BP 126/67; PULSE 68; RESP 18; TEMP 98.1; O2SAT 94
[2017-11-27] MEDS: SODIUM CHLORIDE 0.9% FLUSH 10 ML FLUSH IV FLUSH SCH (21:00)
[2017-11-27] MEDS: DOCUSATE SODIUM 50 MG/SENNA 8.6 MG TAB PO SCH (21:00)
[2017-11-27] MEDS: SODIUM CHLOR 0.9% 1000 ML INJ 1,000 ML IV SCH (21:54)
[2017-11-27] MEDS: GABAPENTIN 300 MG CAP PO SCH (21:55)
[2017-11-27] MEDS: ZOLPIDEM TARTRATE 10 MG TAB PO PRN (21:55)
[2017-11-27] MEDS ORDERED: LORazepam 2 MG TAB PO PRN (22:15)
[2017-11-27] MEDS ORDERED: FLUMAZENIL 0.5 MG/5 ML VIAL IV PUSH PRN (22:15)
[2017-11-27] MEDS ORDERED: LORazepam 2 MG/ML VIAL IV PUSH PRN ×4 (22:15)
[2017-11-27] MEDS ORDERED: LORazepam 1 MG TAB PO PRN (22:15)
[2017-11-27 23:17] VITALS: BP 126/96; PULSE 84; RESP 18; TEMP 98.4; O2SAT 98
[2017-11-28] MEDS: PIPERACIL-TAZO 4.5 GM PREMIX 100 ML IV SCH ×4 (00:17→19:00)
[2017-11-28] MEDS: MORPHINE SULFATE 2 MG/ML INJ IV PUSH PRN ×8 (03:06→21:54)
[2017-11-28] MEDS: SODIUM CHLORIDE 0.9% FLUSH 10 ML FLUSH IV FLUSH SCH ×2 (03:07→20:44)
[2017-11-28 03:37] VITALS: BP 123/71; PULSE 73; RESP 18; TEMP 98.7; O2SAT 96
[2017-11-28 07:25] LABS: AUTOMATED NEUTROPHIL # 7.4 TH/MM3 (1.8-7.7); BASOPHIL # 0.1 TH/MM3 (0-0.2); BASOPHIL % 0.6 % (0.0-2.0); EOSINOPHIL # 0.2 TH/MM3 (0-0.4); EOSINOPHIL % 1.5 % (0.0-4.0); HEMATOCRIT 37.7 % (35.0-46.0); HEMOGLOBIN 12.8 GM/DL (11.6-15.3); LYMPH % 19.9 % (9.0-44.0); LYMPHOCYTE # 2.1 TH/MM3 (1.0-4.8); MEAN CELL VOLUME 91.8 FL (80.0-100.0); MEAN CORPUSCULAR HEMOGLOBIN 31.2 PG (27.0-34.0); MEAN PLATELET VOLUME 8.8 FL (7.0-11.0); MONOCYTE # 0.8 TH/MM3 (0-0.9); PLATELET COUNT 239 TH/MM3 (150-450); RED CELL DISTRIBUTION WIDTH 14.5 % (11.6-17.2); WHITE BLOOD COUNT 10.5 TH/MM3 (4.0-11.0)
[2017-11-28 08:03] LABS: ALBUMIN 2.8 GM/DL (3.4-5.0); ALKALINE PHOSPHATASE 75 U/L (45-117); ALT (GPT) 27 U/L (10-53); AST (GOT) 20 U/L (15-37); BICARBONATE 21.4 MEQ/L (21.0-32.0); BLOOD UREA NITROGEN 9 MG/DL (7-18); CALCIUM 7.9 MG/DL (8.5-10.1); CHLORIDE 109 MEQ/L (98-107); CREATININE 0.81 MG/DL (0.50-1.00); GLOMERULAR FILTRATION RATE 75 ML/MIN (>89); GLUCOSE,RANDOM 86 MG/DL (74-106); SODIUM (NA) 139 MEQ/L (136-145); TOTAL BILIRUBIN ADULT 1.3 MG/DL (0.2-1.0); TOTAL PROTEIN 6.4 GM/DL (6.4-8.2)
[2017-11-28 08:07] VITALS: BP 122/67; PULSE 69; RESP 20; TEMP 98.1; O2SAT 96
[2017-11-28] MEDS: GABAPENTIN 300 MG CAP PO SCH ×2 (08:08→20:43)
[2017-11-28] MEDS: FOLIC ACID 1 MG TAB PO SCH (08:08)
[2017-11-28] MEDS: THIAMINE HCL 100 MG TAB PO SCH (08:08)
[2017-11-28] MEDS: DOCUSATE SODIUM 50 MG/SENNA 8.6 MG TAB PO SCH ×2 (08:08→20:43)
[2017-11-28] MEDS: MULTIVITAMINS/MINERALS THERAPEUTIC TAB PO SCH (08:08)
[2017-11-28] MEDS: SODIUM CHLOR 0.9% 1000 ML INJ 1,000 ML IV SCH ×2 (11:44→16:00)
[2017-11-28 12:10] VITALS: BP 115/74; PULSE 70; RESP 20; TEMP 98.9; O2SAT 95
[2017-11-28 16:07] VITALS: BP 113/71; PULSE 64; RESP 21; TEMP 98.7; O2SAT 96
--- NOTE | 2017-11-28 16:58 | HHI.PR ---
Subjective Remarks still c/o of abdominal pain - on the lower abdomen. Denies nausea or vomiting. Denies hematuria - states had one episode of hematuria last week. Objective Vitals Vital Signs Date Time Temp Pulse Resp B/P (MAP) Pulse Ox O2 Delivery O2 Flow Rate FiO2 11/28/17 12:10 98.9 70 20 115/74 (88) 95 11/28/17 11:57 Room Air 11/28/17 08:07 98.1 69 20 122/67 (85) 96 11/28/17 08:00 Room Air 11/28/17 03:37 98.7 73 18 123/71 (88) 96 11/27/17 23:17 98.4 84 18 126/96 (106) 98 11/27/17 21:00 Room Air 11/27/17 20:45 98.1 68 18 126/67 (86) 94 11/27/17 20:35 77 18 130/70 (90) 96 11/27/17 20:05 69 18 124/66 (85) 96 Room Air 11/27/17 19:45 98.2 I/O 11/27/17 11/27/17 11/27/17 11/28/17 11/28/17 11/28/17 07:00 15:00 23:00 07:00 15:00 23:00 Intake Total 1400 ml Output Total 200 ml Balance 1200 ml Intake Oral 570 ml IV Total 830 ml Output Urine Total 200 ml # Bowel Movements 0 Result Diagram: 11/28/17 0611 11/28/17 0611 Imaging Last Impressions Abdomen/Pelvis CT 11/27/17 1802 Signed Impressions: Service Date/Time: October 18:58 - CONCLUSION: Sigmoid diverticulitis. Vipin Turner MD Objective Remarks GENERAL: Middle-aged female in no acute distress. HEENT: PERRLA, EOMI. No scleral icterus or conjunctival pallor. No lid lag or facial droop. CARDIOVASCULAR: Regular rate and rhythm. No obvious murmurs to auscultation. No chest tenderness to palpation. RESPIRATORY: No obvious rhonchi or wheezing. Clear to auscultation. Breath sounds equal bilaterally. GASTROINTESTINAL: Abdomen soft, Tender to palpation over lower abdomen especially on left lower quadrant. MUSCULOSKELETAL: Extremities without clubbing, cyanosis, or edema. No obvious deformities. NEUROLOGICAL: Awake, alert and oriented x4. No focal neurologic deficits. Moving both upper and lower extremities spontaneously. Medications and IVs Current Medications Medications (Trade) Dose Ordered Sig/Prince Route Start Time Stop Time Status Last Admin (NS Flush) 2 ml UNSCH PRN IV FLUSH 11/27/17 18:15 (fentaNYL INJ) 25 mcg STAT PRN IV PUSH 11/27/17 19:45 11/27/17 20:12 Piperacillin Sod/ Tazobactam Sod 100 ml @ 200 mls/hr Q6H IV 11/28/17 00:00 11/28/17 11:42 Sodium Chloride 1,000 ml @ 100 mls/hr Q10H IV 11/27/17 20:00 11/28/17 11:44 (NS Flush) 2 ml UNSCH PRN IV FLUSH 11/27/17 20:00 (NS Flush) 2 ml BID IV FLUSH 11/27/17 21:00 11/28/17 03:07 (Zofran Inj) 4 mg Q6H PRN IVP 11/27/17 20:00 (Morphine Inj) 1 mg Q3H PRN IV PUSH 11/27/17 20:00 (Morphine Inj) 2 mg Q3H PRN IV PUSH 11/27/17 20:00 11/28/17 15:49 (Mary-Colace) 1 tab BID PO 11/27/17 21:00 (Milk Of Magnesia Liq) 30 ml Q12H PRN PO 11/27/17 20:00 (Senokot) 17.2 mg Q12H PRN PO 11/27/17 20:00 (Dulcolax Supp) 10 mg DAILY PRN RECTAL 11/27/17 20:00 (Lactulose Liq) 30 ml DAILY PRN PO 11/27/17 20:00 (Neurontin) 300 mg BID PO 11/27/17 21:00 11/28/17 08:08 (Ambien) 10 mg HS PRN PO 11/27/17 20:00 11/27/17 21:55 (Folate) 1 mg DAILY PO 11/28/17 09:00 12/03/17 08:59 11/28/17 08:08 (Vitamin B1) 100 mg DAILY PO 11/28/17 09:00 11/28/17 08:08 (Theragran M Tab) 1 tab DAILY PO 11/28/17 09:00 12/03/17 08:59 11/28/17 08:08 (Romazicon Inj) 0.2 mg Q1M PRN IV PUSH 11/27/17 22:15 (Ativan) 1 mg Q4H PRN PO 11/27/17 22:15 (Ativan Inj) 1 mg Q4H PRN IV PUSH 11/27/17 22:15 (Ativan) 2 mg Q2H PRN PO 11/27/17 22:15 (Ativan Inj) 2 mg Q2H PRN IV PUSH 11/27/17 22:15 (Ativan Inj) 2 mg Q1H PRN IV PUSH 11/27/17 22:15 (Ativan Inj) 2 mg Q15M PRN IV PUSH 11/27/17 22:15 A/P Problem List: (1) Diverticulitis ICD Code: K57.92 - Diverticulitis of intestine, part unspecified, without perforation or abscess without bleeding (2) Hematuria ICD Code: R31.9 - Hematuria, unspecified (3) Dehydration ICD Code: E86.0 - Dehydration (4) Alcohol abuse ICD Code: F10.10 - Alcohol abuse, uncomplicated (5) Tobacco abuse ICD Code: Z72.0 - Tobacco use Assessment and Plan 1. Diverticulitis: abdominal pain x1 wk, CT Abd/Pelvis w/ sigmoid diverticulitis, images reviewed by me. +WBC 15. S/p Rocephin/Flagyl in ER, will continue w/ Zosyn IV. Analgesics/antiemetics as needed. IVF for hydration. 2. Hematuria: U/a positive for hematuria, no evidence of UTI. Hgb stable, monitor Hgb/Hct. 11/28 UA shows large blood. Will consult urology. 3. Dehydration: GFR 69, BUN/Creatinine normal, decreased PO intake in light of symptoms. IVF for hydration, repeat labs in am. 4. Alcohol Abuse: CIWA, Seizure Precautions, MVT/Thiamine/Folate replacement. 11/28 no evidence of etoh withdrawal. 5. Tobacco Abuse: Pt counselled. NicoDerm prn if needed. 6. DVT Prophylaxis: SCD/Teds. 7. Social work for d/c planning as needed. 8. Leukocytosis: Possibly due to diverticulitis. Now resolved. Discharge Planning Continue to monitor in the medical floor. DC pending clinical improvement and urology consult. Marquis Swan MD Nov 28, 2017 16:58
[2017-11-28 20:00] VITALS: BP 116/56; PULSE 63; RESP 17; TEMP 97.9; O2SAT 96
[2017-11-28] MEDS: ZOLPIDEM TARTRATE 10 MG TAB PO PRN (21:54)
[2017-11-29] VITALS: BP 112/55; PULSE 78; RESP 17; TEMP 98; O2SAT 95
[2017-11-29] MEDS: SODIUM CHLOR 0.9% 1000 ML INJ 1,000 ML IV SCH ×3 (00:55→20:59)
[2017-11-29] MEDS: PIPERACIL-TAZO 4.5 GM PREMIX 100 ML IV SCH ×4 (00:55→17:18)
[2017-11-29] MEDS: MORPHINE SULFATE 2 MG/ML INJ IV PUSH PRN ×7 (00:55→21:00)
[2017-11-29 04:00] VITALS: BP 118/67; PULSE 71; RESP 17; TEMP 98.2; O2SAT 96
[2017-11-29 08:07] VITALS: BP 121/80; PULSE 56; RESP 21; TEMP 98.3; O2SAT 97
[2017-11-29] MEDS: DOCUSATE SODIUM 50 MG/SENNA 8.6 MG TAB PO SCH ×2 (08:59→21:00)
[2017-11-29] MEDS: THIAMINE HCL 100 MG TAB PO SCH (08:59)
[2017-11-29] MEDS: FOLIC ACID 1 MG TAB PO SCH (08:59)
[2017-11-29] MEDS: GABAPENTIN 300 MG CAP PO SCH ×2 (08:59→20:59)
[2017-11-29] MEDS: MULTIVITAMINS/MINERALS THERAPEUTIC TAB PO SCH (08:59)
[2017-11-29] MEDS: SODIUM CHLORIDE 0.9% FLUSH 10 ML FLUSH IV FLUSH SCH ×2 (09:00→21:00)
[2017-11-29 12:07] VITALS: BP 128/65; PULSE 62; RESP 20; TEMP 98.1; O2SAT 94
--- NOTE | 2017-11-29 14:26 | MB ---
cc: MINERVA CHASE DATE OF CONSULTATION: 11/29/2017. HISTORY OF PRESENT ILLNESS: This is a pleasant 47-year-old female who presented with abdominal pain and an episode hematuria last week. Her symptoms have been on and off. She denies any prior history of gross hematuria. She denies any history of urinary tract infections or urgency or frequency. She denies any nocturia or history of stones. She denies any fever or chills or nausea or vomiting or diarrhea. CT scan in the emergency room demonstrated possible sigmoid diverticulitis. IV contrast was administered and the upper tracts were within normal limits. Her urinalysis was noted for numerous red cells. PAST MEDICAL HISTORY: Her medical history includes: 1. Anxiety. 2. Depression. 3. Prior drug use. PAST SURGICAL HISTORY: 1. Hysterectomy. 2. Appendectomy. 3. Ovarian cyst removal. MEDICATIONS: For medications, please refer to the chart. ALLERGIES: 1. TYLENOL. 2. BUPROPION. 3. OXYCODONE. 4. PROPOXYPHENE. FAMILY HISTORY: Notable for her father having prostate cancer. SOCIAL HISTORY: She is a heavy smoker of one pack per day since age 12. She does have a history of drug abuse. She does drink on occasion. REVIEW OF SYSTEMS: She denies chest pain. She does note anxiety and depression. Notes hematuria. Notes abdominal pain. Denies chest pain or shortness of breath, gait disturbances. She does note peripheral numbness at times for which she takes Gabapentin. The remaining review of systems were reviewed and were negative. PHYSICAL EXAMINATION: VITAL SIGNS: Today temperature is 98.3, heart rate 56, respiratory rate 21, blood pressure 121/80, 97% on room air. GENERAL: She is a well-developed, well-nourished 47-year-old female in no acute distress. HEAD, EYES, EARS, NOSE, THROAT: Normocephalic and atraumatic. Pupils equal, round, regular and reactive to light. Extraocular muscles intact. NECK: The neck is supple. Trachea is midline. HEART: Regular rate and rhythm. LUNGS: Clear. ABDOMEN: Soft. It is tender over the left lower quadrant and the lower suprapubic region. No rebound or guarding is noted. GENITOURINARY: Normal female external genitalia. EXTREMITIES: No cyanosis, clubbing or edema. NEUROLOGIC: Cranial nerves II through XII are intact. PSYCHIATRIC: Generalized mood. Some anxiety is noted however. LABORATORY DATA: White count 10.5, hemoglobin 12.8, hematocrit 37.7, platelet count of 239,000. Sodium 139, potassium 3.5, chloride 109, carbon dioxide 21.4, BUN 99, creatinine 0.81, glucose of 86. Urinalysis shows large innumerable red cells, 6 white cells. IMAGING STUDIES: CT scan is consistent with sigmoid diverticulitis with normal upper tracts. ASSESSMENT: This is a 47-year-old female admitted with a sigmoid diverticulitis and noted to have hematuria. 1. Will recommend sending off a urine cytology. 2. CT scan with normal upper tracts. 3. Will recommend outpatient cystoscopy as her hematuria has resolved. Thank you for the consult and for allowing me to participate in the care of this patient. Minerva MOTLEY/ABRAN /11:27 AM /2:03 PM
[2017-11-29 16:06] VITALS: BP 128/64; PULSE 66; RESP 20; TEMP 98.7; O2SAT 97
--- NOTE | 2017-11-29 17:11 | HHI.PR ---
Subjective Remarks Patient still c/o LLQ abdominal pain, denies nausea or vomiting. Denies fevers or chills. Requesting to have dose of pain medication increased. Objective Vitals Vital Signs Date Time Temp Pulse Resp B/P (MAP) Pulse Ox O2 Delivery O2 Flow Rate FiO2 11/29/17 12:07 98.1 62 20 128/65 (86) 94 11/29/17 08:07 98.3 56 21 121/80 (94) 97 11/29/17 08:00 Room Air 11/29/17 04:00 98.2 71 17 118/67 (84) 96 11/29/17 00:00 98.0 78 17 112/55 (74) 95 11/28/17 20:00 Room Air 11/28/17 20:00 97.9 63 17 116/56 (76) 96 11/28/17 18:34 Room Air I/O 11/28/17 11/28/17 11/28/17 11/29/17 11/29/17 11/29/17 07:00 15:00 23:00 07:00 15:00 23:00 Intake Total 1400 ml 820 ml 2683 ml Output Total 200 ml 1200 ml 900 ml Balance 1200 ml -380 ml 1783 ml Intake Oral 570 ml 720 ml 2000 ml IV Total 830 ml 100 ml 683 ml Output Urine Total 200 ml 1200 ml 900 ml # Bowel Movements 0 1 Result Diagram: 11/28/17 0611 11/28/17 0611 Imaging Last Impressions Abdomen/Pelvis CT 11/27/17 1802 Signed Impressions: Service Date/Time: October 18:58 - CONCLUSION: Sigmoid diverticulitis. Vipin Turner MD Objective Remarks GENERAL: Middle-aged female in no acute distress. HEENT: PERRLA, EOMI. No scleral icterus or conjunctival pallor. No lid lag or facial droop. CARDIOVASCULAR: Regular rate and rhythm. No obvious murmurs to auscultation. No chest tenderness to palpation. RESPIRATORY: No obvious rhonchi or wheezing. Clear to auscultation. Breath sounds equal bilaterally. GASTROINTESTINAL: Abdomen soft, Tender to palpation over lower abdomen especially on left lower quadrant. MUSCULOSKELETAL: Extremities without clubbing, cyanosis, or edema. No obvious deformities. NEUROLOGICAL: Awake, alert and oriented x4. No focal neurologic deficits. Moving both upper and lower extremities spontaneously. Medications and IVs Current Medications Medications (Trade) Dose Ordered Sig/Prince Route Start Time Stop Time Status Last Admin (NS Flush) 2 ml UNSCH PRN IV FLUSH 11/27/17 18:15 (fentaNYL INJ) 25 mcg STAT PRN IV PUSH 11/27/17 19:45 11/27/17 20:12 Piperacillin Sod/ Tazobactam Sod 100 ml @ 200 mls/hr Q6H IV 11/28/17 00:00 11/29/17 12:32 Sodium Chloride 1,000 ml @ 100 mls/hr Q10H IV 11/27/17 20:00 11/29/17 12:00 (NS Flush) 2 ml UNSCH PRN IV FLUSH 11/27/17 20:00 (NS Flush) 2 ml BID IV FLUSH 11/27/17 21:00 11/29/17 09:00 (Zofran Inj) 4 mg Q6H PRN IVP 11/27/17 20:00 (Morphine Inj) 1 mg Q3H PRN IV PUSH 11/27/17 20:00 (Morphine Inj) 2 mg Q3H PRN IV PUSH 11/27/17 20:00 11/29/17 14:25 (Mary-Colace) 1 tab BID PO 11/27/17 21:00 11/29/17 08:59 (Milk Of Magnesia Liq) 30 ml Q12H PRN PO 11/27/17 20:00 (Senokot) 17.2 mg Q12H PRN PO 11/27/17 20:00 (Dulcolax Supp) 10 mg DAILY PRN RECTAL 11/27/17 20:00 (Lactulose Liq) 30 ml DAILY PRN PO 11/27/17 20:00 (Neurontin) 300 mg BID PO 11/27/17 21:00 11/29/17 08:59 (Ambien) 10 mg HS PRN PO 11/27/17 20:00 11/28/17 21:54 (Folate) 1 mg DAILY PO 11/28/17 09:00 12/03/17 08:59 11/29/17 08:59 (Vitamin B1) 100 mg DAILY PO 11/28/17 09:00 11/29/17 08:59 (Theragran M Tab) 1 tab DAILY PO 11/28/17 09:00 12/03/17 08:59 11/29/17 08:59 (Romazicon Inj) 0.2 mg Q1M PRN IV PUSH 11/27/17 22:15 (Ativan) 1 mg Q4H PRN PO 11/27/17 22:15 (Ativan Inj) 1 mg Q4H PRN IV PUSH 11/27/17 22:15 (Ativan) 2 mg Q2H PRN PO 11/27/17 22:15 (Ativan Inj) 2 mg Q2H PRN IV PUSH 11/27/17 22:15 (Ativan Inj) 2 mg Q1H PRN IV PUSH 11/27/17 22:15 (Ativan Inj) 2 mg Q15M PRN IV PUSH 11/27/17 22:15 A/P Problem List: (1) Diverticulitis ICD Code: K57.92 - Diverticulitis of intestine, part unspecified, without perforation or abscess without bleeding (2) Hematuria ICD Code: R31.9 - Hematuria, unspecified (3) Dehydration ICD Code: E86.0 - Dehydration (4) Alcohol abuse ICD Code: F10.10 - Alcohol abuse, uncomplicated (5) Tobacco abuse ICD Code: Z72.0 - Tobacco use Assessment and Plan 1. Diverticulitis: abdominal pain x1 wk, CT Abd/Pelvis w/ sigmoid diverticulitis, images reviewed by me. +WBC 15. S/p Rocephin/Flagyl in ER, will continue w/ Zosyn IV. Analgesics/antiemetics as needed. IVF for hydration. 11/29 patient still with significant pain on the left lower quadrant. Afebrile. I will place patient on clear liquids and consult GI. I will increase dose of morphine to 2 mg as needed for pain 3-5 and 4 mg as needed for pain 6-10. 2. Hematuria: U/a positive for hematuria, no evidence of UTI. Hgb stable, monitor Hgb/Hct. 11/28 UA shows large blood. Will consult urology. 11/29 neurology recommends sending off a urine cytology and an outpatient cystoscopy. 3. Dehydration: GFR 69, BUN/Creatinine normal, decreased PO intake in light of symptoms. IVF for hydration, repeat labs in am. 4. Alcohol Abuse: CIWA, Seizure Precautions, MVT/Thiamine/Folate replacement. 11/28 no evidence of etoh withdrawal. 5. Tobacco Abuse: Pt counselled. NicoDerm prn if needed. 6. DVT Prophylaxis: SCD/Teds. 7. Social work for d/c planning as needed. 8. Leukocytosis: Possibly due to diverticulitis. Now resolved. Discharge Planning Continue to monitor in the medical floor. DC pending clinical improvement and urology consult. Marquis Swan MD Nov 29, 2017 17:11
[2017-11-29] MEDS ORDERED: POTASSIUM CHLORIDE 10 MEQ CONTROLLED RELEASE TAB PO ONE (17:15)
[2017-11-29 20:00] VITALS: BP 138/77; PULSE 68; RESP 17; TEMP 98.1; O2SAT 97
[2017-11-29 21:55] LABS: HEMATOCRIT 38.2 % (35.0-46.0); HEMOGLOBIN 12.8 GM/DL (11.6-15.3); MEAN CELL VOLUME 92.1 FL (80.0-100.0); MEAN CORPUSCULAR HEMOGLOBIN 30.8 PG (27.0-34.0); MEAN CORPUSCULAR HGB CONC 33.4 % (32.0-36.0); MEAN PLATELET VOLUME 8.6 FL (7.0-11.0); PLATELET COUNT 257 TH/MM3 (150-450); RED BLOOD COUNT 4.14 MIL/MM3 (4.00-5.30); RED CELL DISTRIBUTION WIDTH 14.1 % (11.6-17.2); WHITE BLOOD COUNT 12.2 TH/MM3 (4.0-11.0)
[2017-11-29 22:00] LABS: BICARBONATE 26.4 MEQ/L (21.0-32.0); CALCIUM 8.5 MG/DL (8.5-10.1); CREATININE 0.87 MG/DL (0.50-1.00)
[2017-11-30] VITALS (7 sets, daily range): BP systolic 113–144; BP diastolic 62–84; PULSE 62–77; RESP 16–20; TEMP 97.7–98.8; O2SAT 94–97
[2017-11-30] MEDS: PIPERACIL-TAZO 4.5 GM PREMIX 100 ML IV SCH ×2 (00:03→05:55)
[2017-11-30] MEDS: ZOLPIDEM TARTRATE 10 MG TAB PO PRN ×2 (00:03→22:12)
[2017-11-30] MEDS: MORPHINE SULFATE 2 MG/ML INJ IV PUSH PRN ×8 (00:04→22:13)
[2017-11-30] MEDS: GABAPENTIN 300 MG CAP PO SCH ×2 (08:48→21:02)
[2017-11-30] MEDS: metroNIDAZOLE 500 MG INJ 100 ML IV SCH ×2 (08:49→17:30)
[2017-11-30] MEDS: MULTIVITAMINS/MINERALS THERAPEUTIC TAB PO SCH (08:49)
[2017-11-30] MEDS: FOLIC ACID 1 MG TAB PO SCH (08:49)
[2017-11-30] MEDS: THIAMINE HCL 100 MG TAB PO SCH (08:49)
[2017-11-30] MEDS: SODIUM CHLORIDE 0.9% FLUSH 10 ML FLUSH IV FLUSH SCH ×2 (08:52→21:03)
[2017-11-30] MEDS: ONDANSETRON HCL 4 MG/2 ML VIAL IVP PRN ×2 (08:55→18:46)
[2017-11-30] MEDS: DOCUSATE SODIUM 50 MG/SENNA 8.6 MG TAB PO SCH ×2 (09:00→21:00)
--- NOTE | 2017-11-30 10:28 | PD.CONS ---
HPI History of Present Illness This is a 47 year old female came into the hospital on 11/27/17 with symptoms of hematuria and abdominal pain. Patient states abdominal pain was diffuse lower abdomen left and right quadrants and denies any pain like this before. States the pain was a 10 out of 10 and felt like she needed to come to the hospital to be evaluated. Abdominal CT scan showed sigmoid diverticulitis. The patient also has symptoms of nausea off and on, worse over the past week, but no vomiting. She denies dysphagia but states that she has heartburn on a weekly basis. She takes Tums and Maalox sometimes 4 times a day to control her symptoms. Patient states her norm is 3-4 loose stools every morning, but noted 8 loose stools over the past 24 hours since admission. Initial lab work showed elevated bilirubin 1.3, W BC count 12.2, hemoglobin 12.8. Patient consumes alcohol at least 3 times/week, shots which she calls fire balls. Patient is a long-term smoker since age of 14 a pack a day, other comorbidities include depression which she has been treated for in the past. Abdominal pelvic CT shows sigmoid diverticulitis. Patient denies any dysphagia or constipation. No history of previous colonoscopy or endoscopy. (Charisse Gonzalez) PFSH Past Medical History PMH: Anxiety and Depression Past Surgical History PAST SURGICAL HISTORY: Ovarian Cystectomy, Hysterectomy, Appendectomy (Charisse Gonzalez) Coded Allergies: acetaminophen (Verified Allergy, Mild, HIVES, 11/27/17) pt states she can take tylenol without any issues; pt states she has an allergy to Percocet (oxycodone) bupropion (Verified Allergy, Mild, HIVES, 11/27/17) oxycodone (Verified Allergy, Mild, HIVES, 11/27/17) pt states she is allergic to percocet; pt is able to take tylenol without any issues. propoxyphene (Verified Allergy, Unknown, hives, 11/27/17) Medications Administered Medications Medications (Trade) Dose Ordered Sig/Prince Route PRN Reason Start Time Stop Time Status Last Admin Dose Admin Fentanyl Citrate (fentaNYL INJ) 25 mcg STAT PRN IV PUSH PAIN GREATER THAN 5 11/27/17 19:45 11/27/17 20:12 Piperacillin Sod/ Tazobactam Sod 100 ml @ 200 mls/hr Q6H IV 11/28/17 00:00 11/30/17 05:55 Sodium Chloride 1,000 ml @ 100 mls/hr Q10H IV 11/27/17 20:00 11/29/17 20:59 Sodium Chloride (NS Flush) 2 ml BID IV FLUSH 11/27/17 21:00 11/30/17 08:52 Ondansetron HCl (Zofran Inj) 4 mg Q6H PRN IVP NAUSEA OR VOMITING 11/27/17 20:00 11/30/17 08:55 Senna/Docusate Sodium (Mary-Colace) 1 tab BID PO 11/27/17 21:00 11/29/17 08:59 Gabapentin (Neurontin) 300 mg BID PO 11/27/17 21:00 11/30/17 08:48 Zolpidem Tartrate (Ambien) 10 mg HS PRN PO INSOMNIA 11/27/17 20:00 11/30/17 00:03 Folic Acid (Folate) 1 mg DAILY PO 11/28/17 09:00 12/03/17 08:59 11/30/17 08:49 Thiamine HCl (Vitamin B1) 100 mg DAILY PO 11/28/17 09:00 11/30/17 08:49 Multivitamins/ Minerals Therapeutic (Theragran M Tab) 1 tab DAILY PO 11/28/17 09:00 12/03/17 08:59 11/30/17 08:49 Morphine Sulfate (Morphine Inj) 4 mg Q3H PRN IV PUSH Pain 6-10 11/29/17 17:25 11/30/17 09:58 Metronidazole 100 ml @ 100 mls/hr Q8H IV 11/30/17 09:00 11/30/17 08:49 Family History PAST FAMILY HISTORY: Reviewed. No h/o DM or CAD, father had prostate cancer but no known colon cancer in the family. Family history of polyps Social History PAST SOCIAL HISTORY: Positive for alcohol 3 times a week , shots which she calls fire balls . Smokes 1ppd. Negative for drugs. currently lives with her (Charisse Gonzalez) Review of Systems Gastrointestinal: COMPLAINS OF: Abdominal pain (left and right lower quadrant) , Diarrhea, Nausea Genitourinary: COMPLAINS OF: Hematuria (Charisse Gonzalez) GI Exam Vitals I&O Vital Signs Date Time Temp Pulse Resp B/P (MAP) Pulse Ox O2 Delivery O2 Flow Rate FiO2 11/30/17 08:08 98.5 64 20 132/63 (86) 97 11/30/17 04:00 97.7 67 17 140/84 (102) 97 11/30/17 00:00 98.4 68 17 134/81 (98) 95 11/29/17 20:00 Room Air 11/29/17 20:00 98.1 68 17 138/77 (97) 97 11/29/17 17:45 20 11/29/17 16:06 98.7 66 20 128/64 (85) 97 11/29/17 12:07 98.1 62 20 128/65 (86) 94 I/O 11/29/17 11/29/17 11/29/17 11/30/17 11/30/17 11/30/17 07:00 15:00 23:00 07:00 15:00 23:00 Intake Total 2683 ml 1460 ml 2563 ml Output Total 900 ml 2700 ml 3600 ml Balance 1783 ml -1240 ml -1037 ml Intake Oral 2000 ml 460 ml 1630 ml IV Total 683 ml 1000 ml 933 ml Output Urine Total 900 ml 2700 ml 3600 ml # Bowel Movements 6 1 Imaging Last Impressions Abdomen/Pelvis CT 11/27/171801 Signed Impressions: Service Date/Time: October 18:58 - CONCLUSION: Sigmoid diverticulitis. Vipin Turner MD Laboratory Test 11/29/17 21:24 White Blood Count 12.2 TH/MM3 Red Blood Count 4.14 MIL/MM3 Hemoglobin 12.8 GM/DL Hematocrit 38.2 % Mean Corpuscular Volume 92.1 FL Mean Corpuscular Hemoglobin 30.8 PG Mean Corpuscular Hemoglobin Concent 33.4 % Red Cell Distribution Width 14.1 % Platelet Count 257 TH/MM3 Mean Platelet Volume 8.6 FL Blood Urea Nitrogen 5 MG/DL Creatinine 0.87 MG/DL Random Glucose 82 MG/DL Calcium Level 8.5 MG/DL Sodium Level 140 MEQ/L Potassium Level 4.0 MEQ/L Chloride Level 107 MEQ/L Carbon Dioxide Level 26.4 MEQ/L Anion Gap 7 MEQ/L Estimat Glomerular Filtration Rate 69 ML/MIN Physical Examination HEENT: Pupils round and reactive to light; normocephalic; atraumatic; no obvious jaundice. Throat is clean NECK: Neck is supple, no JVD, no lymphadenopathy. CHEST: Chest is clear without rhonchi CARDIAC: Regular rate and rhythm ABDOMEN: Soft, nondistended, tenderness noted in left and right lower quadrants , bowel sounds are present in all four quadrants. EXTREMITIES: No clubbing, cyanosis, or edema. SKIN: Normal; no rash; no jaundice. [employer]GER: No focal deficits; alert and oriented times three. (Charisse Gonzalez) Assessment and Plan Assessment: (1) Nausea ICD Codes: R11.0 - Nausea (2) Heartburn ICD Codes: R12 - Heartburn (3) GERD (gastroesophageal reflux disease) ICD Codes: K21.9 - Gastro-esophageal reflux disease without esophagitis (4) Diverticulitis ICD Codes: K57.92 - Diverticulitis of intestine, part unspecified, without perforation or abscess without bleeding (5) Tobacco abuse ICD Codes: Z72.0 - Tobacco use (6) Loose stools ICD Codes: R19.5 - Other fecal abnormalities Plan Left and right lower quadrant pain probable symptoms of diverticulitis found on CT scan abdomen and pelvis Nausea and weekly heartburn symptoms probable secondary to GERD Flagyl 500 mg IV every 8 Cipro 500 by mouth every 12 Protonix PPI started Clear liquids Monitor any acute bleeding, intake and output, number of stools Call for any acute bleeding or change in GI status Monitor labs, CBC CMP in the a.m. Since patient has had no endoscopy or colonoscopy she will need in the near future. We'll discuss timing with Dr. Kaufman Plan of care and procedures will be based on patient's needs and symptoms This patient was seen by myself and Dr. Kaufman, this note was written on his behalf (Charisse Gonzalez) Physician Comments As above, will continue antibiotics for Diverticulitis and will need colonoscopy after 6 to 8 weeks. (Ria Kaufman MD) Charisse Gonzalez Nov 30, 2017 10:28 Ria Kaufman MD Nov 30, 2017 12:10
[2017-11-30] MEDS ORDERED: CIPROFLOXACIN 500 MG TAB PO SCH (11:00)
[2017-11-30] MEDS: PANTOPRAZOLE SOD 40 MG DELAYED RELEASE TAB PO SCH ×4 (11:00→21:03)
[2017-11-30] MEDS ORDERED: CIPROFLOXACIN 400 MG PREMIX 200 ML IV SCH (12:00)
[2017-11-30] MEDS: CIPROFLOXACIN 400 MG PREMIX 200 ML IV SCH ×2 (12:10→21:03)
[2017-11-30 12:38] LABS: AUTOMATED NEUTROPHIL # 8.5 TH/MM3 (1.8-7.7); BASOPHIL # 0.1 TH/MM3 (0-0.2); BASOPHIL % 0.6 % (0.0-2.0); EOSINOPHIL # 0.2 TH/MM3 (0-0.4); EOSINOPHIL % 1.7 % (0.0-4.0); HEMATOCRIT 35.4 % (35.0-46.0); LYMPH % 16.5 % (9.0-44.0); LYMPHOCYTE # 1.9 TH/MM3 (1.0-4.8); MEAN CELL VOLUME 92.7 FL (80.0-100.0); MEAN CORPUSCULAR HEMOGLOBIN 31.4 PG (27.0-34.0); MEAN CORPUSCULAR HGB CONC 33.9 % (32.0-36.0); MEAN PLATELET VOLUME 8.5 FL (7.0-11.0); MONOCYTE # 0.8 TH/MM3 (0-0.9); NEUT % 74.2 % (16.0-70.0); PLATELET COUNT 255 TH/MM3 (150-450); RED BLOOD COUNT 3.82 MIL/MM3 (4.00-5.30); WHITE BLOOD COUNT 11.5 TH/MM3 (4.0-11.0)
[2017-11-30 12:58] LABS: BICARBONATE 24.4 MEQ/L (21.0-32.0); CALCIUM 8.9 MG/DL (8.5-10.1); CREATININE 0.76 MG/DL (0.50-1.00)
--- NOTE | 2017-11-30 14:19 | HHI.PR ---
Subjective Remarks abdominal pain is still present but better. Nauseous earlier, no vomiting. Objective Vitals Vital Signs Date Time Temp Pulse Resp B/P (MAP) Pulse Ox O2 Delivery O2 Flow Rate FiO2 11/30/17 12:06 98.4 77 20 113/62 (79) 95 11/30/17 08:08 98.5 64 20 132/63 (86) 97 11/30/17 04:00 97.7 67 17 140/84 (102) 97 11/30/17 00:00 98.4 68 17 134/81 (98) 95 11/29/17 20:00 Room Air 11/29/17 20:00 98.1 68 17 138/77 (97) 97 11/29/17 17:45 20 11/29/17 16:06 98.7 66 20 128/64 (85) 97 I/O 11/29/17 11/29/17 11/29/17 11/30/17 11/30/17 11/30/17 07:00 15:00 23:00 07:00 15:00 23:00 Intake Total 2683 ml 1460 ml 2563 ml Output Total 900 ml 2700 ml 3600 ml Balance 1783 ml -1240 ml -1037 ml Intake Oral 2000 ml 460 ml 1630 ml IV Total 683 ml 1000 ml 933 ml Output Urine Total 900 ml 2700 ml 3600 ml # Bowel Movements 6 1 Result Diagram: 11/30/17 1200 11/30/17 1200 Imaging Last Impressions Abdomen/Pelvis CT 11/27/17 1802 Signed Impressions: Service Date/Time: October 18:58 - CONCLUSION: Sigmoid diverticulitis. Vipin Turner MD Objective Remarks GENERAL: Middle-aged female in no acute distress. HEENT: PERRLA, EOMI. No scleral icterus or conjunctival pallor. No lid lag or facial droop. CARDIOVASCULAR: Regular rate and rhythm. No obvious murmurs to auscultation. No chest tenderness to palpation. RESPIRATORY: No obvious rhonchi or wheezing. Clear to auscultation. Breath sounds equal bilaterally. GASTROINTESTINAL: Abdomen soft, Tender to palpation over lower abdomen especially on left lower quadrant improved from previous day. MUSCULOSKELETAL: Extremities without clubbing, cyanosis, or edema. No obvious deformities. NEUROLOGICAL: Awake, alert and oriented x4. No focal neurologic deficits. Moving both upper and lower extremities spontaneously. Medications and IVs Current Medications Medications (Trade) Dose Ordered Sig/Prince Route Start Time Stop Time Status Last Admin (fentaNYL INJ) 25 mcg STAT PRN IV PUSH 11/27/17 19:45 11/27/17 20:12 Sodium Chloride 1,000 ml @ 100 mls/hr Q10H IV 11/27/17 20:00 11/29/17 20:59 (NS Flush) 2 ml UNSCH PRN IV FLUSH 11/27/17 20:00 (NS Flush) 2 ml BID IV FLUSH 11/27/17 21:00 11/30/17 08:52 (Zofran Inj) 4 mg Q6H PRN IVP 11/27/17 20:00 11/30/17 08:55 (Mary-Colace) 1 tab BID PO 11/27/17 21:00 11/30/17 09:00 (Milk Of Magnesia Liq) 30 ml Q12H PRN PO 11/27/17 20:00 (Senokot) 17.2 mg Q12H PRN PO 11/27/17 20:00 (Dulcolax Supp) 10 mg DAILY PRN RECTAL 11/27/17 20:00 (Lactulose Liq) 30 ml DAILY PRN PO 11/27/17 20:00 (Neurontin) 300 mg BID PO 11/27/17 21:00 11/30/17 08:48 (Ambien) 10 mg HS PRN PO 11/27/17 20:00 11/30/17 00:03 (Folate) 1 mg DAILY PO 11/28/17 09:00 12/03/17 08:59 11/30/17 08:49 (Vitamin B1) 100 mg DAILY PO 11/28/17 09:00 11/30/17 08:49 (Theragran M Tab) 1 tab DAILY PO 11/28/17 09:00 12/03/17 08:59 11/30/17 08:49 (Romazicon Inj) 0.2 mg Q1M PRN IV PUSH 11/27/17 22:15 (Ativan) 1 mg Q4H PRN PO 11/27/17 22:15 (Ativan Inj) 1 mg Q4H PRN IV PUSH 11/27/17 22:15 (Ativan) 2 mg Q2H PRN PO 11/27/17 22:15 (Ativan Inj) 2 mg Q2H PRN IV PUSH 11/27/17 22:15 (Ativan Inj) 2 mg Q1H PRN IV PUSH 11/27/17 22:15 (Ativan Inj) 2 mg Q15M PRN IV PUSH 11/27/17 22:15 (Morphine Inj) 2 mg Q3H PRN IV PUSH 11/29/17 17:25 (Morphine Inj) 4 mg Q3H PRN IV PUSH 11/29/17 17:25 11/30/17 13:25 Metronidazole 100 ml @ 100 mls/hr Q8H IV 11/30/17 09:00 11/30/17 08:49 (Protonix) 40 mg Q12HR PO 11/30/17 10:15 11/30/17 12:10 (Protonix) 40 mg Q12HR PO 11/30/17 11:00 Ciprofloxacin/ Dextrose 200 ml @ 200 mls/hr Q8H IV 11/30/17 12:00 11/30/17 12:10 Urinary Catheter: No Vascular Central Line Catheter: No A/P Problem List: (1) Diverticulitis ICD Code: K57.92 - Diverticulitis of intestine, part unspecified, without perforation or abscess without bleeding (2) Hematuria ICD Code: R31.9 - Hematuria, unspecified (3) Dehydration ICD Code: E86.0 - Dehydration (4) Alcohol abuse ICD Code: F10.10 - Alcohol abuse, uncomplicated (5) Tobacco abuse ICD Code: Z72.0 - Tobacco use Assessment and Plan 1. Diverticulitis: abdominal pain x1 wk, CT Abd/Pelvis w/ sigmoid diverticulitis, images reviewed by me. +WBC 15. S/p Rocephin/Flagyl in ER, will continue w/ Zosyn IV. Analgesics/antiemetics as needed. IVF for hydration. 11/29 patient still with significant pain on the left lower quadrant. Afebrile. I will place patient on clear liquids and consult GI. I will increase dose of morphine to 2 mg as needed for pain 3-5 and 4 mg as needed for pain 6-10. 11/30 continue pain control as above. Abdominal pain is improving. Continue clear liquids. GI consultation noted. As per GI recommendations DC Zosyn and Rx IV Ciprofloxacin and IV Flagyl. 2. Hematuria: U/a positive for hematuria, no evidence of UTI. Hgb stable, monitor Hgb/Hct. 11/28 UA shows large blood. Will consult urology. 11/29 neurology recommends sending off a urine cytology and an outpatient cystoscopy. 3. Dehydration: GFR 69, BUN/Creatinine normal, decreased PO intake in light of symptoms. IVF for hydration, repeat labs in am. 11/30 Dehydration resolved. DC IV Fluids. 4. Alcohol Abuse: CIWA, Seizure Precautions, MVT/Thiamine/Folate replacement. 11/30 no evidence of etoh withdrawal. 5. Tobacco Abuse: Pt counselled. NicoDerm prn if needed. 6. DVT Prophylaxis: SCD/Teds. 7. Social work for d/c planning as needed. 8. Leukocytosis: Possibly due to diverticulitis. Improving. Discharge Planning Continue to monitor in the medical floor. Patient still with abdominal pain and on clear liquid diet. DC pending clinical improvement. Marquis Swan MD Nov 30, 2017 14:19
[2017-12-01] MEDS: metroNIDAZOLE 500 MG INJ 100 ML IV SCH ×3 (01:18→16:37)
[2017-12-01] MEDS: MORPHINE SULFATE 2 MG/ML INJ IV PUSH PRN ×7 (01:23→22:47)
[2017-12-01] MEDS: CIPROFLOXACIN 400 MG PREMIX 200 ML IV SCH ×3 (04:02→19:44)
[2017-12-01 04:05] VITALS: BP 112/69; PULSE 66; RESP 16; TEMP 97.6; O2SAT 94
[2017-12-01 08:00] VITALS: BP 131/63; PULSE 67; RESP 20; TEMP 98.2; O2SAT 97
[2017-12-01 08:26] LABS: AUTOMATED NEUTROPHIL # 5.8 TH/MM3 (1.8-7.7); BASOPHIL # 0.1 TH/MM3 (0-0.2); BASOPHIL % 0.8 % (0.0-2.0); EOSINOPHIL # 0.2 TH/MM3 (0-0.4); EOSINOPHIL % 2.7 % (0.0-4.0); HEMATOCRIT 35.2 % (35.0-46.0); LYMPH % 20.8 % (9.0-44.0); LYMPHOCYTE # 1.8 TH/MM3 (1.0-4.8); MEAN CELL VOLUME 92.3 FL (80.0-100.0); MEAN CORPUSCULAR HEMOGLOBIN 31.5 PG (27.0-34.0); MEAN CORPUSCULAR HGB CONC 34.1 % (32.0-36.0); MEAN PLATELET VOLUME 8.6 FL (7.0-11.0); MONO % 9.9 % (0.0-8.0); MONOCYTE # 0.9 TH/MM3 (0-0.9); NEUT % 65.8 % (16.0-70.0); PLATELET COUNT 235 TH/MM3 (150-450); RED BLOOD COUNT 3.81 MIL/MM3 (4.00-5.30); RED CELL DISTRIBUTION WIDTH 14.1 % (11.6-17.2); WHITE BLOOD COUNT 8.8 TH/MM3 (4.0-11.0)
[2017-12-01] MEDS: PANTOPRAZOLE SOD 40 MG DELAYED RELEASE TAB PO SCH ×2 (08:35→19:45)
[2017-12-01] MEDS: FOLIC ACID 1 MG TAB PO SCH (08:35)
[2017-12-01] MEDS: GABAPENTIN 300 MG CAP PO SCH ×2 (08:36→19:45)
[2017-12-01] MEDS: SODIUM CHLORIDE 0.9% FLUSH 10 ML FLUSH IV FLUSH SCH ×2 (08:36→19:45)
[2017-12-01] MEDS: MULTIVITAMINS/MINERALS THERAPEUTIC TAB PO SCH (08:36)
[2017-12-01] MEDS: DOCUSATE SODIUM 50 MG/SENNA 8.6 MG TAB PO SCH ×2 (08:36→19:45)
[2017-12-01] MEDS: THIAMINE HCL 100 MG TAB PO SCH (08:40)
[2017-12-01 08:53] LABS: AST (GOT) 22 U/L (15-37); BICARBONATE 26.5 MEQ/L (21.0-32.0); BLOOD UREA NITROGEN 4 MG/DL (7-18); CALCIUM 9.1 MG/DL (8.5-10.1); CHLORIDE 106 MEQ/L (98-107); CREATININE 0.72 MG/DL (0.50-1.00); GLOMERULAR FILTRATION RATE 86 ML/MIN (>89); GLUCOSE,RANDOM 86 MG/DL (74-106); SODIUM (NA) 141 MEQ/L (136-145)
[2017-12-01 08:57] LABS: ALKALINE PHOSPHATASE 94 U/L (45-117); ALT (GPT) 34 U/L (10-53); TOTAL BILIRUBIN ADULT 0.6 MG/DL (0.2-1.0); TOTAL PROTEIN 7.2 GM/DL (6.4-8.2)
[2017-12-01 12:00] VITALS: BP 117/65; PULSE 70; RESP 20; TEMP 97.7; O2SAT 93
[2017-12-01] MEDS ORDERED: POTASSIUM CHLORIDE 10 MEQ CONTROLLED RELEASE TAB PO ONE (13:00)
--- NOTE | 2017-12-01 15:28 | HHI.PR ---
Subjective Remarks still c/o abdominal pain but this is better than before. states tolerated clear liquid diet. Afebrile Objective Vitals Vital Signs Date Time Temp Pulse Resp B/P (MAP) Pulse Ox O2 Delivery O2 Flow Rate FiO2 12/01/17 12:00 97.7 70 20 117/65 (82) 93 12/01/17 08:00 Room Air 12/01/17 08:00 98.2 67 20 131/63 (85) 97 12/01/17 04:05 97.6 66 16 112/69 (83) 94 11/30/17 23:20 98.1 76 16 144/74 (97) 94 11/30/17 20:58 97.9 62 16 140/70 (93) 97 11/30/17 20:00 Room Air 11/30/17 16:06 98.8 66 20 131/82 (98) 95 I/O 11/30/17 11/30/17 11/30/17 12/01/17 12/01/17 12/01/17 07:00 15:00 23:00 07:00 15:00 23:00 Intake Total 2563 ml 300 ml 480 ml 1450 ml Output Total 3600 ml 2700 ml 2800 ml Balance -1037 ml 300 ml -2220 ml -1350 ml Intake Oral 1630 ml 480 ml 1140 ml IV Total 933 ml 300 ml 310 ml Output Urine Total 3600 ml 2700 ml 2800 ml # Bowel Movements 1 4 2 Result Diagram: 12/01/17 0710 12/01/17 0710 Imaging Last Impressions Abdomen/Pelvis CT 11/27/17 1802 Signed Impressions: Service Date/Time: October 18:58 - CONCLUSION: Sigmoid diverticulitis. Vipin Turner MD Objective Remarks GENERAL: Middle-aged female in no acute distress. HEENT: PERRLA, EOMI. No scleral icterus or conjunctival pallor. No lid lag or facial droop. CARDIOVASCULAR: Regular rate and rhythm. No obvious murmurs to auscultation. No chest tenderness to palpation. RESPIRATORY: No obvious rhonchi or wheezing. Clear to auscultation. Breath sounds equal bilaterally. GASTROINTESTINAL: Abdomen soft, Tender to palpation over lower abdomen especially on left lower quadrant improved from previous day. MUSCULOSKELETAL: Extremities without clubbing, cyanosis, or edema. No obvious deformities. NEUROLOGICAL: Awake, alert and oriented x4. No focal neurologic deficits. Moving both upper and lower extremities spontaneously. Medications and IVs Current Medications Medications (Trade) Dose Ordered Sig/Prince Route Start Time Stop Time Status Last Admin (fentaNYL INJ) 25 mcg STAT PRN IV PUSH 11/27/17 19:45 11/27/17 20:12 (NS Flush) 2 ml UNSCH PRN IV FLUSH 11/27/17 20:00 (NS Flush) 2 ml BID IV FLUSH 11/27/17 21:00 12/01/17 08:36 (Zofran Inj) 4 mg Q6H PRN IVP 11/27/17 20:00 11/30/17 18:46 (Mary-Colace) 1 tab BID PO 11/27/17 21:00 11/30/17 09:00 (Milk Of Magnesia Liq) 30 ml Q12H PRN PO 11/27/17 20:00 (Senokot) 17.2 mg Q12H PRN PO 11/27/17 20:00 (Dulcolax Supp) 10 mg DAILY PRN RECTAL 11/27/17 20:00 (Lactulose Liq) 30 ml DAILY PRN PO 11/27/17 20:00 (Neurontin) 300 mg BID PO 11/27/17 21:00 12/01/17 08:36 (Ambien) 10 mg HS PRN PO 11/27/17 20:00 11/30/17 22:12 (Folate) 1 mg DAILY PO 11/28/17 09:00 12/03/17 08:59 12/01/17 08:35 (Vitamin B1) 100 mg DAILY PO 11/28/17 09:00 12/01/17 08:40 (Theragran M Tab) 1 tab DAILY PO 11/28/17 09:00 12/03/17 08:59 12/01/17 08:36 (Romazicon Inj) 0.2 mg Q1M PRN IV PUSH 11/27/17 22:15 (Ativan) 1 mg Q4H PRN PO 11/27/17 22:15 (Ativan Inj) 1 mg Q4H PRN IV PUSH 11/27/17 22:15 (Ativan) 2 mg Q2H PRN PO 11/27/17 22:15 (Ativan Inj) 2 mg Q2H PRN IV PUSH 11/27/17 22:15 (Ativan Inj) 2 mg Q1H PRN IV PUSH 11/27/17 22:15 (Ativan Inj) 2 mg Q15M PRN IV PUSH 11/27/17 22:15 (Morphine Inj) 2 mg Q3H PRN IV PUSH 11/29/17 17:25 12/01/17 01:23 (Morphine Inj) 4 mg Q3H PRN IV PUSH 11/29/17 17:25 12/01/17 13:51 Metronidazole 100 ml @ 100 mls/hr Q8H IV 11/30/17 09:00 12/01/17 08:36 (Protonix) 40 mg Q12HR PO 11/30/17 10:15 12/01/17 08:35 Ciprofloxacin/ Dextrose 200 ml @ 200 mls/hr Q8H IV 11/30/17 12:00 12/01/17 12:20 A/P Problem List: (1) Diverticulitis ICD Code: K57.92 - Diverticulitis of intestine, part unspecified, without perforation or abscess without bleeding (2) Hematuria ICD Code: R31.9 - Hematuria, unspecified (3) Dehydration ICD Code: E86.0 - Dehydration (4) Alcohol abuse ICD Code: F10.10 - Alcohol abuse, uncomplicated (5) Tobacco abuse ICD Code: Z72.0 - Tobacco use Assessment and Plan 1. Diverticulitis: abdominal pain x1 wk, CT Abd/Pelvis w/ sigmoid diverticulitis, images reviewed by me. +WBC 15. S/p Rocephin/Flagyl in ER, will continue w/ Zosyn IV. Analgesics/antiemetics as needed. IVF for hydration. 11/29 patient still with significant pain on the left lower quadrant. Afebrile. I will place patient on clear liquids and consult GI. I will increase dose of morphine to 2 mg as needed for pain 3-5 and 4 mg as needed for pain 6-10. 11/30 continue pain control as above. Abdominal pain is improving. Continue clear liquids. GI consultation noted. As per GI recommendations DC Zosyn and Rx IV Ciprofloxacin and IV Flagyl. 12/01/17 Continue IV antibiotics as above. Advance diet to full liquid. Fu GI recommendations. 2. Hematuria: U/a positive for hematuria, no evidence of UTI. Hgb stable, monitor Hgb/Hct. 11/28 UA shows large blood. Will consult urology. 11/29 neurology recommends sending off a urine cytology and an outpatient cystoscopy. 3. Dehydration: GFR 69, BUN/Creatinine normal, decreased PO intake in light of symptoms. IVF for hydration, repeat labs in am. IV fluids discontinued 11/30. 4. Alcohol Abuse: CIWA, Seizure Precautions, MVT/Thiamine/Folate replacement. 11/30 no evidence of etoh withdrawal. Continue CIWA protocol. 5. Tobacco Abuse: Pt counselled. NicoDerm prn if needed. 6. DVT Prophylaxis: SCD/Teds. 7. Social work for d/c planning as needed. 8. Leukocytosis: Possibly due to diverticulitis. Resolved. Discharge Planning Continue to monitor in the medical floor. Patient still with abdominal pain. Pending clinical improvement. Marquis Swan MD Dec 01, 2017 15:28
[2017-12-01 16:00] VITALS: BP 117/77; PULSE 66; RESP 20; TEMP 98.4; O2SAT 96
[2017-12-01 20:00] VITALS: BP 136/64; PULSE 56; RESP 16; TEMP 97.8; O2SAT 98
[2017-12-02] VITALS: BP 125/67; PULSE 70; RESP 18; TEMP 97.9; O2SAT 95
[2017-12-02] MEDS: MORPHINE SULFATE 2 MG/ML INJ IV PUSH PRN ×7 (01:40→22:35)
[2017-12-02] MEDS: metroNIDAZOLE 500 MG INJ 100 ML IV SCH ×3 (01:40→19:05)
[2017-12-02 04:00] VITALS: BP 143/74; PULSE 61; RESP 18; TEMP 97.5; O2SAT 99
[2017-12-02] MEDS: CIPROFLOXACIN 400 MG PREMIX 200 ML IV SCH ×4 (04:40→17:07)
[2017-12-02 08:00] VITALS: BP 98/59; PULSE 63; RESP 20; TEMP 98.7; O2SAT 98
[2017-12-02] MEDS: MULTIVITAMINS/MINERALS THERAPEUTIC TAB PO SCH (08:11)
[2017-12-02] MEDS: GABAPENTIN 300 MG CAP PO SCH ×2 (08:11→20:27)
[2017-12-02] MEDS: THIAMINE HCL 100 MG TAB PO SCH (08:11)
[2017-12-02] MEDS: PANTOPRAZOLE SOD 40 MG DELAYED RELEASE TAB PO SCH ×2 (08:11→20:27)
[2017-12-02] MEDS: SODIUM CHLORIDE 0.9% FLUSH 10 ML FLUSH IV FLUSH SCH ×2 (08:12→20:28)
[2017-12-02] MEDS: DOCUSATE SODIUM 50 MG/SENNA 8.6 MG TAB PO SCH ×2 (08:12→20:28)
[2017-12-02] MEDS: FOLIC ACID 1 MG TAB PO SCH (08:12)
--- NOTE | 2017-12-02 11:01 | HHI.GIFU ---
Subjective Remarks Pt resting in bed in NAD. "A little better every day." Still has some lower quadrant pain worse with BM or moving around the room but says it is better than it was. Scant BRBPR she attributes to frequent BMs and hemorrhoids. + soft BM. Tolerating full liquid diet. Objective Vitals I&O Vital Signs Date Time Temp Pulse Resp B/P (MAP) Pulse Ox O2 Delivery O2 Flow Rate FiO2 12/02/17 08:10 Room Air 12/02/17 08:00 98.7 63 20 98/59 (72) 98 12/02/17 04:36 Room Air 12/02/17 04:00 97.5 61 18 143/74 (97) 99 12/02/17 00:00 Room Air 12/02/17 00:00 97.9 70 18 125/67 (86) 95 12/01/17 20:00 97.8 56 16 136/64 (88) 98 12/01/17 20:00 Room Air 12/01/17 16:00 98.4 66 20 117/77 (90) 96 12/01/17 12:00 97.7 70 20 117/65 (82) 93 I/O 12/01/17 12/01/17 12/01/17 12/02/17 12/02/17 12/02/17 07:00 15:00 23:00 07:00 15:00 23:00 Intake Total 1450 ml 1400 ml 910 ml Output Total 2800 ml 2500 ml 1600 ml Balance -1350 ml -1100 ml -690 ml Intake Oral 1140 ml 900 ml 810 ml IV Total 310 ml 500 ml 100 ml Output Urine Total 2800 ml 2500 ml 1600 ml # Bowel Movements 2 4 4 Imaging Last Impressions Abdomen/Pelvis CT 11/27/17 1802 Signed Impressions: Service Date/Time: October 18:58 - CONCLUSION: Sigmoid diverticulitis. Vipin Turner MD Physical Exam HEENT: PERRL; normocephalic; atraumatic; no jaundice. CHEST: wheezes right side CARDIAC: RRR ABDOMEN: Soft, nondistended, lower quadrant TTP; no hepatosplenomegaly; bowel sounds are present in all four quadrants. EXTREMITIES: No clubbing, cyanosis, or edema. SKIN: Normal; no rash; no jaundice. C[employer] CASH[employer] FOOD PREP: No focal deficits; alert and oriented times three. Assessment and Plan Assessment: (1) Nausea ICD Codes: R11.0 - Nausea (2) Heartburn ICD Codes: R12 - Heartburn (3) GERD (gastroesophageal reflux disease) ICD Codes: K21.9 - Gastro-esophageal reflux disease without esophagitis (4) Diverticulitis ICD Codes: K57.92 - Diverticulitis of intestine, part unspecified, without perforation or abscess without bleeding (5) Tobacco abuse ICD Codes: Z72.0 - Tobacco use (6) Loose stools ICD Codes: R19.5 - Other fecal abnormalities Plan 12/02/16- pain improving, tolerating full liquid diet. scant BRBPR on wipe after BM. WBC improved to WNL. PLAN - continue Flagyl and Cipro - PPI - advance diet as tolerated - EGD and colonoscopy in 6 weeks after diverticulitis improved - avoid seeds nuts and popcorn - high fiber diet once diverticulitis resolved - supportive care This pt seen by myself and Dr Leija and this note is written on his behalf Ashely Reilly Dec 02, 2017 11:01
[2017-12-02 12:00] VITALS: BP 125/58; PULSE 59; RESP 18; TEMP 98.4; O2SAT 95
--- NOTE | 2017-12-02 14:42 | HHI.PR ---
Subjective Remarks Pain in llq is improving but still present tolerating full liquid diet afebrile denies nausea or vomiting Objective Vitals Vital Signs Date Time Temp Pulse Resp B/P (MAP) Pulse Ox O2 Delivery O2 Flow Rate FiO2 12/02/17 08:10 Room Air 12/02/17 08:00 98.7 63 20 98/59 (72) 98 12/02/17 04:36 Room Air 12/02/17 04:00 97.5 61 18 143/74 (97) 99 12/02/17 00:00 Room Air 12/02/17 00:00 97.9 70 18 125/67 (86) 95 12/01/17 20:00 97.8 56 16 136/64 (88) 98 12/01/17 20:00 Room Air 12/01/17 16:00 98.4 66 20 117/77 (90) 96 I/O 12/01/17 12/01/17 12/01/17 12/02/17 12/02/17 12/02/17 07:00 15:00 23:00 07:00 15:00 23:00 Intake Total 1450 ml 1400 ml 910 ml Output Total 2800 ml 2500 ml 1600 ml Balance -1350 ml -1100 ml -690 ml Intake Oral 1140 ml 900 ml 810 ml IV Total 310 ml 500 ml 100 ml Output Urine Total 2800 ml 2500 ml 1600 ml # Bowel Movements 2 4 4 Result Diagram: 12/01/17 0710 12/01/17 0710 Imaging Last Impressions Abdomen/Pelvis CT 11/27/17 1802 Signed Impressions: Service Date/Time: October 18:58 - CONCLUSION: Sigmoid diverticulitis. Vipin Turner MD Objective Remarks GENERAL: Middle-aged female in no acute distress. HEENT: PERRLA, EOMI. No scleral icterus or conjunctival pallor. No lid lag or facial droop. CARDIOVASCULAR: Regular rate and rhythm. No obvious murmurs to auscultation. No chest tenderness to palpation. RESPIRATORY: No obvious rhonchi or wheezing. Clear to auscultation. Breath sounds equal bilaterally. GASTROINTESTINAL: Abdomen soft, Tender to palpation over lower abdomen especially on left lower quadrant improved from previous day. MUSCULOSKELETAL: Extremities without clubbing, cyanosis, or edema. No obvious deformities. NEUROLOGICAL: Awake, alert and oriented x4. No focal neurologic deficits. Moving both upper and lower extremities spontaneously. Medications and IVs Current Medications Medications (Trade) Dose Ordered Sig/Prince Route Start Time Stop Time Status Last Admin (fentaNYL INJ) 25 mcg STAT PRN IV PUSH 11/27/17 19:45 11/27/17 20:12 (NS Flush) 2 ml UNSCH PRN IV FLUSH 11/27/17 20:00 (NS Flush) 2 ml BID IV FLUSH 11/27/17 21:00 12/02/17 08:12 (Zofran Inj) 4 mg Q6H PRN IVP 11/27/17 20:00 11/30/17 18:46 (Mary-Colace) 1 tab BID PO 11/27/17 21:00 11/30/17 09:00 (Milk Of Magnesia Liq) 30 ml Q12H PRN PO 11/27/17 20:00 (Senokot) 17.2 mg Q12H PRN PO 11/27/17 20:00 (Dulcolax Supp) 10 mg DAILY PRN RECTAL 11/27/17 20:00 (Lactulose Liq) 30 ml DAILY PRN PO 11/27/17 20:00 (Neurontin) 300 mg BID PO 11/27/17 21:00 12/02/17 08:11 (Ambien) 10 mg HS PRN PO 11/27/17 20:00 11/30/17 22:12 (Folate) 1 mg DAILY PO 11/28/17 09:00 12/03/17 08:59 12/02/17 08:12 (Vitamin B1) 100 mg DAILY PO 11/28/17 09:00 12/02/17 08:11 (Theragran M Tab) 1 tab DAILY PO 11/28/17 09:00 12/03/17 08:59 12/02/17 08:11 (Romazicon Inj) 0.2 mg Q1M PRN IV PUSH 11/27/17 22:15 (Ativan) 1 mg Q4H PRN PO 11/27/17 22:15 (Ativan Inj) 1 mg Q4H PRN IV PUSH 11/27/17 22:15 (Ativan) 2 mg Q2H PRN PO 11/27/17 22:15 (Ativan Inj) 2 mg Q2H PRN IV PUSH 11/27/17 22:15 (Ativan Inj) 2 mg Q1H PRN IV PUSH 11/27/17 22:15 (Ativan Inj) 2 mg Q15M PRN IV PUSH 11/27/17 22:15 (Morphine Inj) 2 mg Q3H PRN IV PUSH 11/29/17 17:25 12/01/17 01:23 (Morphine Inj) 4 mg Q3H PRN IV PUSH 11/29/17 17:25 12/02/17 12:10 Metronidazole 100 ml @ 100 mls/hr Q8H IV 11/30/17 09:00 12/02/17 08:12 (Protonix) 40 mg Q12HR PO 11/30/17 10:15 12/02/17 08:11 Ciprofloxacin/ Dextrose 200 ml @ 200 mls/hr Q8H IV 12/02/17 09:00 12/02/17 09:36 A/P Problem List: (1) Diverticulitis ICD Code: K57.92 - Diverticulitis of intestine, part unspecified, without perforation or abscess without bleeding (2) Hematuria ICD Code: R31.9 - Hematuria, unspecified (3) Dehydration ICD Code: E86.0 - Dehydration (4) Alcohol abuse ICD Code: F10.10 - Alcohol abuse, uncomplicated (5) Tobacco abuse ICD Code: Z72.0 - Tobacco use Assessment and Plan 1. Diverticulitis: abdominal pain x1 wk, CT Abd/Pelvis w/ sigmoid diverticulitis, images reviewed by me. +WBC 15. S/p Rocephin/Flagyl in ER, started on Zosyn IV. Analgesics/antiemetics as needed. IVF for hydration. Pain uncontrolled on 11/29 so morphine dose increased to 2 mg IV as needed for pain 1-5 and 4 mg for pain 6-10. GI consulted. Zosyn IV discontinued and the patient was started on ciprofloxacin IV and Flagyl IV. 1/2 patient tolerating diet, continue IV antibiotics as above, UTI, advance diet as tolerated, the patient will need a colonoscopy 6 weeks after diverticulitis improved. Patient advised to avoid seeds, nuts and popcorn. Patient was advised to have a high-fiber diet was diverticulitis resolved. 2. Hematuria: U/a positive for hematuria, no evidence of UTI. Hgb stable, monitor Hgb/Hct. 11/28 UA shows large blood. Will consult urology. 11/29 urology recommends sending off a urine cytology and an outpatient cystoscopy. 3. Dehydration: GFR 69, BUN/Creatinine normal, decreased PO intake in light of symptoms. IVF for hydration, repeat labs in am. IV fluids discontinued 11/30. 4. Alcohol Abuse: CIWA, Seizure Precautions, MVT/Thiamine/Folate replacement. 11/30 no evidence of etoh withdrawal. Continue CIWA protocol. 5. Tobacco Abuse: Pt counselled. NicoDerm prn if needed. 6. DVT Prophylaxis: SCD/Teds. 7. Social work for d/c planning as needed. 8. Leukocytosis: Possibly due to diverticulitis. Resolved. Discharge Planning Continue to monitor in the medical floor. Patient still with abdominal pain. Pending clinical improvement. Pending GI clearance - possible DC in am. Marquis Swan MD Dec 02, 2017 14:42
[2017-12-02 16:00] VITALS: BP 123/67; PULSE 59; RESP 20; TEMP 98.1; O2SAT 98
[2017-12-02 20:00] VITALS: BP 110/63; PULSE 57; RESP 18; TEMP 98.5; O2SAT 97
[2017-12-02] MEDS: ZOLPIDEM TARTRATE 10 MG TAB PO PRN (22:34)
[2017-12-03] VITALS: BP 125/73; PULSE 67; RESP 16; TEMP 97.6; O2SAT 98
[2017-12-03] MEDS: CIPROFLOXACIN 400 MG PREMIX 200 ML IV SCH ×2 (01:01→09:09)
[2017-12-03] MEDS: metroNIDAZOLE 500 MG INJ 100 ML IV SCH ×2 (01:01→09:07)
[2017-12-03] MEDS: MORPHINE SULFATE 2 MG/ML INJ IV PUSH PRN ×3 (02:04→09:12)
[2017-12-03 04:00] VITALS: BP 127/67; PULSE 62; RESP 16; TEMP 98.7; O2SAT 95
[2017-12-03 06:50] LABS: AUTOMATED NEUTROPHIL # 5.5 TH/MM3 (1.8-7.7); BASOPHIL # 0.1 TH/MM3 (0-0.2); BASOPHIL % 0.7 % (0.0-2.0); EOSINOPHIL # 0.4 TH/MM3 (0-0.4); EOSINOPHIL % 4.4 % (0.0-4.0); HEMOGLOBIN 12.7 GM/DL (11.6-15.3); LYMPH % 21.6 % (9.0-44.0); LYMPHOCYTE # 1.9 TH/MM3 (1.0-4.8); MEAN CELL VOLUME 92.8 FL (80.0-100.0); MEAN CORPUSCULAR HEMOGLOBIN 31.1 PG (27.0-34.0); MEAN CORPUSCULAR HGB CONC 33.5 % (32.0-36.0); MEAN PLATELET VOLUME 8.6 FL (7.0-11.0); MONO % 11.8 % (0.0-8.0); MONOCYTE # 1.1 TH/MM3 (0-0.9); NEUT % 61.5 % (16.0-70.0); PLATELET COUNT 287 TH/MM3 (150-450); RED CELL DISTRIBUTION WIDTH 13.7 % (11.6-17.2)
[2017-12-03 07:34] LABS: ALBUMIN 3.2 GM/DL (3.4-5.0); ALT (GPT) 28 U/L (10-53); AST (GOT) 20 U/L (15-37); BICARBONATE 26.3 MEQ/L (21.0-32.0); BLOOD UREA NITROGEN 8 MG/DL (7-18); CALCIUM 9.1 MG/DL (8.5-10.1); CHLORIDE 104 MEQ/L (98-107); CREATININE 0.94 MG/DL (0.50-1.00); GLOMERULAR FILTRATION RATE 63 ML/MIN (>89); GLUCOSE,RANDOM 120 MG/DL (74-106); SODIUM (NA) 139 MEQ/L (136-145)
[2017-12-03 07:37] LABS: ALKALINE PHOSPHATASE 77 U/L (45-117); TOTAL BILIRUBIN ADULT 0.3 MG/DL (0.2-1.0); TOTAL PROTEIN 7.2 GM/DL (6.4-8.2)
[2017-12-03 08:00] VITALS: BP 135/66; PULSE 65; RESP 20; TEMP 98.3; O2SAT 95
[2017-12-03] MEDS: DOCUSATE SODIUM 50 MG/SENNA 8.6 MG TAB PO SCH (09:00)
[2017-12-03] MEDS: GABAPENTIN 300 MG CAP PO SCH (09:07)
[2017-12-03] MEDS: PANTOPRAZOLE SOD 40 MG DELAYED RELEASE TAB PO SCH (09:07)
[2017-12-03] MEDS: THIAMINE HCL 100 MG TAB PO SCH (09:07)
[2017-12-03] MEDS: SODIUM CHLORIDE 0.9% FLUSH 10 ML FLUSH IV FLUSH SCH (09:07)
[2017-12-03 12:00] VITALS: BP 121/74; PULSE 64; RESP 20; TEMP 98.7; O2SAT 94
[2017-12-03] MEDS ORDERED: THIA100 PO (13:42)
[2017-12-03] MEDS ORDERED: MSIR15 PO (13:42)
--- NOTE | 2017-12-03 13:43 | HHI.DCPOC ---
Discharge Care Plan Diagnosis: (1) Diverticulitis (2) Tobacco abuse Goals to Promote Your Health * To prevent worsening of your condition and complications * To maintain your health at the optimal level Directions to Meet Your Goals Take your medications as prescribed Follow your dietary instruction Follow activity as directed Keep your appointments as scheduled Take your immunizations and boosters as scheduled If your symptoms worsen call your PCP, if no PCP go to Urgent Care Center or Emergency Room Smoking is Dangerous to Your Health. Avoid second hand smoke Call the 24-hour hour crisis hotline for domestic abuse at Marquis Swan MD Dec 03, 2017 13:43
--- NOTE | 2017-12-03 13:49 | HHI.DS ---
Discharge Summary Admission Date Nov 27, 2017 at 19:56 Admitting Diagnosis acute sigmoid diverticulitis (1) Diverticulitis ICD Code: K57.92 - Diverticulitis of intestine, part unspecified, without perforation or abscess without bleeding Diagnosis: Principal Status: Acute (2) Hematuria ICD Code: R31.9 - Hematuria, unspecified Diagnosis: Principal Status: Resolved (3) Dehydration ICD Code: E86.0 - Dehydration Diagnosis: Principal Status: Resolved (4) Alcohol abuse ICD Code: F10.10 - Alcohol abuse, uncomplicated Diagnosis: Secondary Status: Chronic (5) Tobacco abuse ICD Code: Z72.0 - Tobacco use Diagnosis: Secondary Status: Chronic Procedures none Brief History - From Admission This is a 47-year-old female with a PMH of Anxiety and Depression who presented to the ER w/ complaints of abdominal pain, hematuria and dysuria for approx 1wk. Symptoms intermittent. Pain constant, severe 10/10. No alleviating/ exacerbating factors. Denies associated fever, chills, nausea, vomiting or diarrhea. Took pain pill at home w/ no relief. No h/o similar symptoms. On arrival, BP 112/71, HR 91, O2 sat 97% on RA, Afebrile. WBC 15.8. GFR 69. Lactic Acid normal. UA positive for hematuria. CT Abd/Pelvis positive for sigmoid diverticulitis. S/p Rocephin/Flagyl in ER. CBC/BMP: 12/03/17 0449 12/03/17 0449 Significant Findings Laboratory Tests Test 12/01/17 07:10 12/03/17 04:49 Red Blood Count 3.81 MIL/MM3 (4.00-5.30) Monocytes (%) (Auto) 9.9 % (0.0-8.0) 11.8 % (0.0-8.0) Blood Urea Nitrogen 4 MG/DL (7-18) Albumin 3.0 GM/DL (3.4-5.0) 3.2 GM/DL (3.4-5.0) Estimat Glomerular Filtration Rate 86 ML/MIN (>89) 63 ML/MIN (>89) Eosinophils (%) (Auto) 4.4 % (0.0-4.0) Monocytes # (Auto) 1.1 TH/MM3 (0-0.9) Random Glucose 120 MG/DL (74-106) Imaging Last Impressions Abdomen/Pelvis CT 11/27/17 1802 Signed Impressions: Service Date/Time: October 18:58 - CONCLUSION: Sigmoid diverticulitis. Vipin Turner MD PE at Discharge GENERAL: Middle-aged female in no acute distress. HEENT: PERRLA, EOMI. No scleral icterus or conjunctival pallor. No lid lag or facial droop. CARDIOVASCULAR: Regular rate and rhythm. No obvious murmurs to auscultation. No chest tenderness to palpation. RESPIRATORY: No obvious rhonchi or wheezing. Clear to auscultation. Breath sounds equal bilaterally. GASTROINTESTINAL: Abdomen soft, Tender to palpation over lower abdomen especially on left lower quadrant improved from previous day. MUSCULOSKELETAL: Extremities without clubbing, cyanosis, or edema. No obvious deformities. NEUROLOGICAL: Awake, alert and oriented x4. No focal neurologic deficits. Moving both upper and lower extremities spontaneously. Pt Condition on Discharge: Stable Discharge Disposition: Discharge Home Discharge Time: <= 30 minutes Discharge Instructions DIET: Follow Instructions for: As Tolerated, No Restrictions Activities you can perform: Regular-No Restrictions Follow up Referrals: PCP Follow-up New Medications: Morphine IR (Morphine IR) 15 Mg Tab 15 MG PO Q4H PRN for PAIN, #15 TAB 0 Refills Thiamine HCl (Gnp Vitamin B-1) 100 Mg Tab 100 MG PO DAILY for Alcohol Detox, #31 TAB Continued Medications: Gabapentin (Gabapentin) 300 Mg Cap 300 MG PO BID, #60 CAP 0 Refills Zolpidem (Ambien) 10 Mg Tab 10 MG PO HS PRN for INSOMNIA, TAB 0 Refills Discontinued Medications: Hydrocodone/Acetaminophen (Hydrocodon-Acetamin 7.5-325/15) 7.5 Mg-325 Mg/15 Ml ( 15 Ml) Solution Marquis Swan MD Dec 03, 2017 13:49
--- NOTE | 2017-12-03 13:53 | HHI.PR ---
Subjective Remarks Patient wants to go home K very low Denies cp/sob afebrile Objective Vitals Vital Signs Date Time Temp Pulse Resp B/P (MAP) Pulse Ox O2 Delivery O2 Flow Rate FiO2 12/03/17 08:00 Room Air 12/03/17 08:00 98.3 65 20 135/66 (89) 95 12/03/17 04:00 98.7 62 16 127/67 (87) 95 12/03/17 04:00 Room Air 12/03/17 02:49 19 12/03/17 00:00 Room Air 12/03/17 00:00 97.6 67 16 125/73 (90) 98 12/02/17 20:30 Room Air 12/02/17 20:00 98.5 57 18 110/63 (79) 97 12/02/17 16:00 98.1 59 20 123/67 (85) 98 I/O 12/02/17 12/02/17 12/02/17 12/03/17 12/03/17 12/03/17 06:59 14:59 22:59 06:59 14:59 22:59 Intake Total 910 ml 300 ml 560 ml Output Total 1600 ml 1300 ml 2500 ml Balance -690 ml 300 ml -740 ml -2500 ml Intake Oral 810 ml 360 ml IV Total 100 ml 300 ml 200 ml Output Urine Total 1600 ml 1300 ml 2500 ml # Bowel Movements 4 3 Result Diagram: 12/03/17 0449 12/03/17 0449 Imaging Last Impressions Abdomen/Pelvis CT 11/27/17 1802 Signed Impressions: Service Date/Time: October 18:58 - CONCLUSION: Sigmoid diverticulitis. Vipin Turner MD Objective Remarks GENERAL: Middle-aged female in no acute distress. HEENT: PERRLA, EOMI. No scleral icterus or conjunctival pallor. No lid lag or facial droop. CARDIOVASCULAR: Regular rate and rhythm. No obvious murmurs to auscultation. No chest tenderness to palpation. RESPIRATORY: No obvious rhonchi or wheezing. Clear to auscultation. Breath sounds equal bilaterally. GASTROINTESTINAL: Abdomen soft, Tender to palpation over lower abdomen especially on left lower quadrant improved from previous day. MUSCULOSKELETAL: Extremities without clubbing, cyanosis, or edema. No obvious deformities. NEUROLOGICAL: Awake, alert and oriented x4. No focal neurologic deficits. Moving both upper and lower extremities spontaneously. Procedures none Medications and IVs Current Medications Medications (Trade) Dose Ordered Sig/Prince Route Start Time Stop Time Status Last Admin (fentaNYL INJ) 25 mcg STAT PRN IV PUSH 11/27/17 19:45 11/27/17 20:12 (NS Flush) 2 ml UNSCH PRN IV FLUSH 11/27/17 20:00 (NS Flush) 2 ml BID IV FLUSH 11/27/17 21:00 12/03/17 09:07 (Zofran Inj) 4 mg Q6H PRN IVP 11/27/17 20:00 11/30/17 18:46 (Mary-Colace) 1 tab BID PO 11/27/17 21:00 11/30/17 09:00 (Milk Of Magnesia Liq) 30 ml Q12H PRN PO 11/27/17 20:00 (Senokot) 17.2 mg Q12H PRN PO 11/27/17 20:00 (Dulcolax Supp) 10 mg DAILY PRN RECTAL 11/27/17 20:00 (Lactulose Liq) 30 ml DAILY PRN PO 11/27/17 20:00 (Neurontin) 300 mg BID PO 11/27/17 21:00 12/03/17 09:07 (Ambien) 10 mg HS PRN PO 11/27/17 20:00 12/02/17 22:34 (Vitamin B1) 100 mg DAILY PO 11/28/17 09:00 12/03/17 09:07 (Romazicon Inj) 0.2 mg Q1M PRN IV PUSH 11/27/17 22:15 (Ativan) 1 mg Q4H PRN PO 11/27/17 22:15 (Ativan Inj) 1 mg Q4H PRN IV PUSH 11/27/17 22:15 (Ativan) 2 mg Q2H PRN PO 11/27/17 22:15 (Ativan Inj) 2 mg Q2H PRN IV PUSH 11/27/17 22:15 (Ativan Inj) 2 mg Q1H PRN IV PUSH 11/27/17 22:15 (Ativan Inj) 2 mg Q15M PRN IV PUSH 11/27/17 22:15 (Morphine Inj) 2 mg Q3H PRN IV PUSH 11/29/17 17:25 1/3/18 09:12 (Morphine Inj) 4 mg Q3H PRN IV PUSH 11/29/17 17:25 12/03/17 05:47 Metronidazole 100 ml @ 100 mls/hr Q8H IV 11/30/17 09:00 12/03/17 09:07 (Protonix) 40 mg Q12HR PO 11/30/17 10:15 12/03/17 09:07 Ciprofloxacin/ Dextrose 200 ml @ 200 mls/hr Q8H IV 12/02/17 09:00 12/03/17 09:09 A/P Problem List: (1) Diverticulitis ICD Code: K57.92 - Diverticulitis of intestine, part unspecified, without perforation or abscess without bleeding Status: Acute (2) Hematuria ICD Code: R31.9 - Hematuria, unspecified Status: Resolved (3) Dehydration ICD Code: E86.0 - Dehydration Status: Resolved (4) Alcohol abuse ICD Code: F10.10 - Alcohol abuse, uncomplicated Status: Chronic (5) Tobacco abuse ICD Code: Z72.0 - Tobacco use Status: Chronic Assessment and Plan 1. Diverticulitis: abdominal pain x1 wk, CT Abd/Pelvis w/ sigmoid diverticulitis, images reviewed by me. +WBC 15. S/p Rocephin/Flagyl in ER, started on Zosyn IV. Analgesics/antiemetics as needed. IVF for hydration. Pain uncontrolled on 11/29 so morphine dose increased to 2 mg IV as needed for pain 1-5 and 4 mg for pain 6-10. GI consulted. Zosyn IV discontinued and the patient was started on ciprofloxacin IV and Flagyl IV. 1/2 patient tolerating diet, continue IV antibiotics as above, UTI, advance diet as tolerated, the patient will need a colonoscopy 6 weeks after diverticulitis improved. Patient advised to avoid seeds, nuts and popcorn. Patient was advised to have a high-fiber diet was diverticulitis resolved. 2. Hematuria: U/a positive for hematuria, no evidence of UTI. Hgb stable, monitor Hgb/Hct. 11/28 UA shows large blood. Will consult urology. 11/29 urology recommends sending off a urine cytology and an outpatient cystoscopy. 3. Dehydration: GFR 69, BUN/Creatinine normal, decreased PO intake in light of symptoms. IVF for hydration, repeat labs in am. IV fluids discontinued 11/30. 4. Alcohol Abuse: CIWA, Seizure Precautions, MVT/Thiamine/Folate replacement. 11/30 no evidence of etoh withdrawal. Continue CIWA protocol. 5. Tobacco Abuse: Pt counselled. NicoDerm prn if needed. 6. DVT Prophylaxis: SCD/Teds. 7. Social work for d/c planning as needed. 8. Leukocytosis: Possibly due to diverticulitis. Resolved. 9. Hypokalemia. Severe with K of 2.8. Patient states had diarrhea yesterday, none today. Ordered 80 meq of potassium Chloride, repeat BMP at noon shows a K level of 2.8. Ordered KCL IV bolus of 40 meq however patient refused and decided to leave AGAINST MEDICAL ADVICE. RN explained to the patient that living with that as well as potassium could include risks including cardiac arrhythmia. Patient understands and still decides to go. Marquis Swan MD Dec 03, 2017 13:53
== END 2017-12-03 15:07 | disposition home or self-care (01) | DRG 392 ==
LOC: NEPD 16:21 → NEDA 19:56 → N04B 20:40
PROVIDERS: ADMIT Hospitalist; ATTEND Hospitalist
DX: K57.32 Diverticulitis of large intestine without perforation or abscess without bleeding (principal); F32.9 Major depressive disorder, single episode, unspecified; K62.5 Hemorrhage of anus and rectum; E86.0 Dehydration; R31.9 Hematuria, unspecified; F10.10 Alcohol abuse, uncomplicated; F17.210 Nicotine dependence, cigarettes, uncomplicated; F41.9 Anxiety disorder, unspecified; M19.90 Unspecified osteoarthritis, unspecified site; K21.9 Gastro-esophageal reflux disease without esophagitis; K64.9 Unspecified hemorrhoids
CPT/HCPCS: 74176; 76937; 80048; 80053; 81001; 82948; 83605; 83690; 85025; 85027; 88112; 96361; 96374; J0696; J0744; J1885; J2270; J2405; J2543; J3010; J7030

== ENCOUNTER 2018-01-05 13:21 | Emergency (ER) | payer BC ==
[~2018-01-05] VITALS: Ht 160 cm; Wt 57.0 kg
[~2018-01-05 13:21] MED LIST changes: -CYMB60CA PO; +GABA300C5 PO; +MSIR15 PO; +THIA100 PO
[2018-01-05 13:26] VITALS: BP 139/83; PULSE 83; RESP 16; TEMP 97.8; O2SAT 100
--- NOTE | 2018-01-05 13:39 | PD ---
HPI Chief Complaint: GI Complaint Time Seen by Provider: 13:38 Travel History International Travel<30 days: No Contact w/Intl Traveler<30days: No Traveled to known affect area: No History of Present Illness HPI 47-year-old female came to the emergency room with history of nausea and vomiting. When I went to see her she was retching loudly holding a vomitus bag. Is difficult to get any history out of her given her distress. Vital signs were stable. I decided to go ahead and order medications and blood work so that this can be treated first. PFSH Past Medical History Narrative Medical List of her past medical, surgical, social and family history is reviewed from the nursing note. Hx Anticoagulant Therapy: No Arthritis: Yes (OA) Asthma: No Anxiety: Yes Depression: Yes Cancer: No Cardiovascular Problems: No COPD: Yes Cerebrovascular Accident: No Diabetes: No Diminished Hearing: No Endocrine: No Gastrointestinal Disorders: Yes GERD: No Genitourinary: No Hiatal Hernia: No Immune Disorder: No Musculoskeletal: Yes Neurologic: No Psychiatric: Yes Reproductive: Yes (hysterectomy) Respiratory: Yes Immunizations Current: No Sleep Apnea: No Thyroid Disease: No Ulcer: No ?: Not Past Surgical History Abdominal Surgery: Yes (appendectomy) Appendectomy: Yes Cardiac Surgery: No Ear Surgery: Yes Endocrine Surgery: No Eye Surgery: No Genitourinary Surgery: No Gynecologic Surgery: Yes (OVARIAN CYST REMOVED., hysterectomy) Hysterectomy: Yes Oral Surgery: No Thoracic Surgery: No Other Surgery: Yes (LAPAROSCOPIES,CYSTS-OVARIES.) Social History Alcohol Use: Yes (3 times a week) Tobacco Use: Yes (1 PPD) Substance Use: No Allergies-Medications (Allergen,Severity, Reaction): Coded Allergies: acetaminophen (Verified Allergy, Mild, HIVES, 01/05/18) pt states she can take tylenol without any issues; pt states she has an allergy to Percocet (oxycodone) bupropion (Verified Allergy, Mild, HIVES, 01/05/18) oxycodone (Verified Allergy, Mild, HIVES, 01/05/18) pt states she is allergic to percocet; pt is able to take tylenol without any issues. propoxyphene (Verified Allergy, Unknown, hives, 01/05/18) Comments List of her allergies reviewed from the nursing note. Reported Meds & Prescriptions Reported Meds & Active Scripts Active Protonix (Pantoprazole Sodium) 40 Mg Tab 40 Mg PO DAILY Reglan (Metoclopramide HCl) 5 Mg Tab 5 Mg PO TIDAC Morphine IR (Morphine Sulfate) 15 Mg Tab 15 Mg PO Q4H PRN Gnp Vitamin B-1 (Thiamine HCl) 100 Mg Tab 100 Mg PO DAILY Reported Gabapentin 300 Mg Cap 300 Mg PO BID Ambien (Zolpidem Tartrate) 10 Mg Tab 10 Mg PO HS PRN Narrative Medication List of her home medications reviewed from the nursing note. Review of Systems Except as stated in HPI: all other systems reviewed are Neg Gastrointestinal: Positive: Nausea, Vomiting Physical Exam Narrative GENERAL: Awake, alert, significant distress, anxious SKIN: Focused skin assessment warm/dry. HEAD: Atraumatic. Normocephalic. EYES: Pupils equal and round. No scleral icterus. No injection or drainage. ENT: No nasal bleeding or discharge. Mucous membranes pink and moist. NECK: Trachea midline. No JVD. CARDIOVASCULAR: Regular rate and rhythm. No murmur appreciated. RESPIRATORY: No accessory muscle use. Clear to auscultation. Breath sounds equal bilaterally. GASTROINTESTINAL: Abdomen soft, non-tender, nondistended. Hepatic and splenic margins not palpable. MUSCULOSKELETAL: No obvious deformities. No clubbing. No cyanosis. No edema. NEUROLOGICAL: Awake and alert. No obvious cranial nerve deficits. Motor grossly within normal limits. Normal speech. PSYCHIATRIC: Appropriate mood and affect; insight and judgment normal. Data Data Last Documented VS Orders Orders Complete Blood Count With Diff (01/05/18 13:41) Comprehensive Metabolic Panel (01/05/18 13:41) Lipase (01/05/18 13:41) Iv Access Insert/Monitor (01/05/18 13:41) Ecg Monitoring (01/05/18 13:41) Oximetry (01/05/18 13:41) Sodium Chlor 0.9% 1000 Ml Inj (Ns 1000 M (01/05/18 13:41) Sodium Chloride 0.9% Flush (Ns Flush) (01/05/18 13:45) Metoclopramide Inj (Reglan Inj) (01/05/18 13:45) Urinalysis - C+S If Indicated (01/05/18 14:01) Drug Screen, Random Urine (01/05/18 14:01) Potassium Chloride (Kcl) (01/05/18 14:45) Sodium Chlor 0.9% 1000 Ml Inj (Ns 1000 M (01/05/18 14:45) Ct Abd/Pel W/O Iv Contrast (01/05/18 ) Pantoprazole (Protonix) (01/05/18 16:00) Ondansetron Inj (Zofran Inj) (01/05/18 16:00) Ed Discharge Order (01/05/18 16:48) Labs Laboratory Tests Test 01/05/18 13:50 01/05/18 15:40 White Blood Count 13.4 TH/MM3 Red Blood Count 5.82 MIL/MM3 Hemoglobin 17.2 GM/DL Hematocrit 52.4 % Mean Corpuscular Volume 90.0 FL Mean Corpuscular Hemoglobin 29.5 PG Mean Corpuscular Hemoglobin Concent 32.8 % Red Cell Distribution Width 12.9 % Platelet Count 352 TH/MM3 Mean Platelet Volume 8.7 FL Neutrophils (%) (Auto) 71.5 % Lymphocytes (%) (Auto) 19.6 % Monocytes (%) (Auto) 5.9 % Eosinophils (%) (Auto) 0.7 % Basophils (%) (Auto) 2.3 % Neutrophils # (Auto) 9.6 TH/MM3 Lymphocytes # (Auto) 2.6 TH/MM3 Monocytes # (Auto) 0.8 TH/MM3 Eosinophils # (Auto) 0.1 TH/MM3 Basophils # (Auto) 0.3 TH/MM3 CBC Comment DIFF FINAL Differential Comment Blood Urea Nitrogen 14 MG/DL Creatinine 0.95 MG/DL Random Glucose 112 MG/DL Total Protein 9.0 GM/DL Albumin 4.4 GM/DL Calcium Level 9.9 MG/DL Alkaline Phosphatase 62 U/L Aspartate Amino Transf (AST/SGOT) 37 U/L Alanine Aminotransferase (ALT/SGPT) 37 U/L Total Bilirubin 0.8 MG/DL Sodium Level 132 MEQ/L Potassium Level 3.0 MEQ/L Chloride Level 92 MEQ/L Carbon Dioxide Level 29.3 MEQ/L Anion Gap 11 MEQ/L Estimat Glomerular Filtration Rate 63 ML/MIN Lipase 307 U/L Urine Color YELLOW Urine Turbidity SLIGHT Urine pH 8.5 Urine Specific Prentiss 1.033 Urine Protein 100 mg/dL Urine Glucose (UA) NEG mg/dL Urine Ketones 80 OR GREATER mg/dL Urine Occult Blood NEG Urine Nitrite NEG Urine Bilirubin NEG Urine Leukocyte Esterase TRACE Urine RBC 0-3 /hpf Urine WBC 3-5 /hpf Urine Squamous Epithelial Cells > 8 /hpf Microscopic Urinalysis Comment CULT NOT INDICATED Urine Opiates Screen NEG Urine Barbiturates Screen NEG Urine Amphetamines Screen NEG Urine Benzodiazepines Screen NEG Urine Cocaine Screen NEG Urine Cannabinoids Screen POS MDM Medical Decision Making Medical Screen Exam Complete: Yes Emergency Medical Condition: Yes Medical Record Reviewed: Yes Differential Diagnosis Acute gastritis, dehydration, electrolyte abnormality Narrative Course 2:38 PM blood test results are back. Her blood count is slightly elevated which could be from all the violent retching that she has been doing. Her sodium and potassium is slightly low. She was given 1 L of IV fluid bolus and Reglan. I have ordered 40 of make use of by mouth potassium. Awaiting for a UA. 4:18 p.m. still waiting for the UA. There is a CT scan of the abdomen pelvis ordered which is waiting to be done and resulted. Patient started to retch some more and I have ordered for a dose of Zofran. She was given a second bolus of IV fluid. 4:[address] scan was read by the radiologist as unremarkable. I'll discharge her home. Procedures EKG Prior to Arrival: No Diagnosis Primary Impression: Acute gastritis Qualified Codes: K29.00 - Acute gastritis without bleeding Additional Impressions: Vomiting Qualified Codes: R11.2 - Nausea with vomiting, unspecified Dehydration Hypokalemia Referrals: Primary Care Physician 3 days Additional Instructions: Please return to the ER if condition worsens or any other new concerns. Otherwise take the medication as per the prescription direction. Follow-up with your primary care next couple days. Med/Other Pt SpecificInfo: Prescription(s) given Scripts Pantoprazole (Protonix) 40 Mg Tab 40 MG PO DAILY for Reflux, #30 TAB 0 Refills Prov: Geronimo Cedillo MD 01/05/18 Metoclopramide (Reglan) 5 Mg Tab 5 MG PO TIDAC, #12 TAB 0 Refills Prov: Geronimo Cedillo MD 01/05/18 Disposition: 01 DISCHARGE HOME Condition: Stable Geronimo Cedillo MD Jan 05, 2018 13:39
[2018-01-05] MEDS ORDERED: SODIUM CHLOR 0.9% 1000 ML INJ 1,000 ML IV SCH (13:41)
[2018-01-05] MEDS ORDERED: METOCLOPRAMIDE HCL 10 MG/2 ML VIAL IV PUSH ONE (13:45)
[2018-01-05] MEDS ORDERED: SODIUM CHLORIDE 0.9% FLUSH 10 ML FLUSH IV FLUSH PRN (13:45)
[2018-01-05 13:53] VITALS: O2SAT 96
[2018-01-05 14:00] LABS: AUTOMATED NEUTROPHIL # 9.6 TH/MM3 (1.8-7.7); BASOPHIL # 0.3 TH/MM3 (0-0.2); BASOPHIL % 2.3 % (0.0-2.0); EOSINOPHIL # 0.1 TH/MM3 (0-0.4); EOSINOPHIL % 0.7 % (0.0-4.0); HEMATOCRIT 52.4 % (35.0-46.0); HEMOGLOBIN 17.2 GM/DL (11.6-15.3); LYMPH % 19.6 % (9.0-44.0); LYMPHOCYTE # 2.6 TH/MM3 (1.0-4.8); MEAN CORPUSCULAR HEMOGLOBIN 29.5 PG (27.0-34.0); MEAN CORPUSCULAR HGB CONC 32.8 % (32.0-36.0); MEAN PLATELET VOLUME 8.7 FL (7.0-11.0); MONO % 5.9 % (0.0-8.0); MONOCYTE # 0.8 TH/MM3 (0-0.9); NEUT % 71.5 % (16.0-70.0); PLATELET COUNT 352 TH/MM3 (150-450); RED BLOOD COUNT 5.82 MIL/MM3 (4.00-5.30); RED CELL DISTRIBUTION WIDTH 12.9 % (11.6-17.2); WHITE BLOOD COUNT 13.4 TH/MM3 (4.0-11.0)
[2018-01-05 14:06] LABS: CHLORIDE 92 MEQ/L (98-107); SODIUM (NA) 132 MEQ/L (136-145)
[2018-01-05 14:09] LABS: CALCIUM 9.9 MG/DL (8.5-10.1)
[2018-01-05 14:10] LABS: ALBUMIN 4.4 GM/DL (3.4-5.0); BICARBONATE 29.3 MEQ/L (21.0-32.0); BLOOD UREA NITROGEN 14 MG/DL (7-18); GLUCOSE,RANDOM 112 MG/DL (74-106)
[2018-01-05 14:13] LABS: ALT (GPT) 37 U/L (10-53); AST (GOT) 37 U/L (15-37); CREATININE 0.95 MG/DL (0.50-1.00); GLOMERULAR FILTRATION RATE 63 ML/MIN (>89)
[2018-01-05 14:14] LABS: TOTAL BILIRUBIN ADULT 0.8 MG/DL (0.2-1.0)
[2018-01-05 14:16] LABS: ALKALINE PHOSPHATASE 62 U/L (45-117)
[2018-01-05] MEDS ORDERED: SODIUM CHLOR 0.9% 1000 ML INJ 1,000 ML IV ONE (14:45)
[2018-01-05] MEDS ORDERED: POTASSIUM CHLORIDE 20 MEQ CONTROLLED RELEASE TAB PO ONE (14:45)
[2018-01-05 14:53] VITALS: BP 131/67; PULSE 65; RESP 20; O2SAT 97
[2018-01-05 15:45] LABS: BLOOD, URINE NEG (NEG); GLUCOSE,URINE NEG (NEG); KETONE, URINE 80 OR GREATER mg/dL (NEG); NITRITE,URINE NEG (NEG); PH, URINE 8.5 (5.0-8.5); URINE LEUKOCYTE ESTERASE TRACE (NEG)
[2018-01-05 15:49] LABS: BILIRUBIN, URINE NEG (NEG)
[2018-01-05 15:50] LABS: RBC, URINE 0-3 /hpf (0-3); SQUAMOUS EPITHELIAL CELL URINE > 8 /hpf (0-5); URINE COLOR YELLOW (YELLW/STRAW)
[2018-01-05 15:59] VITALS: BP 131/67; PULSE 59; RESP 20
[2018-01-05] MEDS ORDERED: ONDANSETRON HCL 4 MG/2 ML VIAL IV PUSH ONE (16:00)
[2018-01-05] MEDS ORDERED: PANTOPRAZOLE SOD 40 MG DELAYED RELEASE TAB PO ONE (16:00)
--- NOTE | 2018-01-05 16:44 | RADRPT ---
EXAM DATE/TIME: 01/05/2018 16:27 [place] COMPARISON: No previous studies available for comparison. INDICATIONS : Intermittent abdominal pain with nausea, vomiting and diarrhea since last hospital visit about one mo nth ago. No improvement. ORAL CONTRAST: No oral contrast ingested. RADIATION DOSE: 7.29 CTDIvol (mGy) MEDICAL HISTORY : Chronic obstructive pulmonary disease. Diverticulitis. SURGICAL HISTORY : Appendectomy. Hysterectomy. ENCOUNTER: [facility] ACUITY: 1 month PAIN SCALE: 6/10 LOCATION: pelvis abdomen TECHNIQUE: Volumetric scanning of the abdomen and pelvis was performed. Using automated exposure control and ad justment of the mA and/or kV according to patient size, radiation dose was kept as low as reasonably achievable to obtain optimal diagnostic quality images. DICOM format image data is available electro nically for review and comparison. FINDINGS: LOWER LUNGS: Mild pleural parenchymal scarring in the lung bases. Mild right base bronchiectasis. LIVER: Homogeneous density without lesion. There is no dilation of the biliary tree. No calcified gallston es. SPLEEN: Normal size without lesion. PANCREAS: Within normal limits. KIDNEYS: Normal in size and shape. There is no mass, stone, or hydronephrosis. ADRENAL GLANDS: Within normal limits. VASCULAR: There is no aortic aneurysm. BOWEL/MESENTERY: . Distal colonic diverticula. No abnormal dilatation of bowel. No focal wall thickening or inflammato ry changes. ABDOMINAL WALL: Within normal limits. RETROPERITONEUM: There is no lymphadenopathy. BLADDER: Decompressed REPRODUCTIVE: Uterus surgically absent. No evidence of pelvic mass or free fluid. INGUINAL: There is no lymphadenopathy or hernia. MUSCULOSKELETAL: Within normal limits for patient age. CONCLUSION: No acute CT findings in the abdomen or pelvis. Vipin Turner MD on January 05, 2018 at 16:38 Board Certified Radiologist. This report was verified electronically.
[2018-01-05] MEDS ORDERED: PROT40TA PO (16:47)
[2018-01-05] MEDS ORDERED: REGL5TAB PO (16:47)
== END 2018-01-05 17:30 | disposition home or self-care (01) ==
LOC: PHED 13:21
DX: K29.00 Acute gastritis without bleeding (principal); R11.2 Nausea with vomiting, unspecified; E86.0 Dehydration; E87.6 Hypokalemia; M19.90 Unspecified osteoarthritis, unspecified site; J44.9 Chronic obstructive pulmonary disease, unspecified; F17.210 Nicotine dependence, cigarettes, uncomplicated; Z79.899 Other long term (current) drug therapy
CPT/HCPCS: 74176; 80053; 80307; 81001; 83690; 85025; 96361; 96374; 96375; 99284; J2405; J2765; J7030